=== PATIENT | male | born 1945 | race Caucasian/White ===

== ENCOUNTER 2020-08-05 10:34 | Outpatient (CLI) | payer MEDICARE, SELFPAY ==
[2020-08-05 11:19] LABS: C Reactive Protein 1.2 mg/L (0.0-4.9)
== END 2020-08-05 10:35 | disposition home or self-care (01) ==
LOC: LAB 10:36
PROVIDERS: PCP Family Medicine; Visit Provider Family Medicine
DX: R29.898 Other symptoms and signs involving the musculoskeletal system (principal)
CPT/HCPCS: 86140

== ENCOUNTER 2021-10-26 08:10 | Outpatient (CLI) | payer MEDICARE, OTHER, SELFPAY ==
[2021-10-26 08:39] VITALS: BMI 25.2
--- NOTE | 2021-10-26 08:40 | ECG_ITS ---
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 Interpretive Statements NAME OF STUDY: LEXISCAN SESTAMIBI STRESS TEST INDICATION: Chest Pain PROCEDURE: At the baseline, the blood pressure was 121/78 mmHg, oxygen saturation 91% with a heart rate of 76 bpm. The electrocardiogram showed normal sinus rhythm, normal axis with T wave inversion in 1 aVL V4 and V6. The Lexiscan was infused over a period of 20 seconds. A total of 0.4 milligrams of Lexiscan was infused. The stress phase was continued for a total of 5 minutes. Heart rate at the end of the stress phase was 89 bpm, oxygen saturation 93% with a blood pressure of 115/68 mmHg. The EKG at the peak infusion revealed 1.5 to [address] depression in leads II, 3, aVF, V4 to V6. T wave inversion noted in 1 aVL V3 to V6. Patient developed chest pressure at 1 minute 31 seconds 4/10 in intensity with radiation to throat that resolved by the time of discharge. Sestamibi was injected 20 seconds after the Lexiscan infusion. Blood pressure at the end of the recovery phase was 130/71 mmHg, oxygen saturation 95% with a heart rate of 83 beats per minute. Patient received aminophylline 25 mg IV x2 during recovery. CONCLUSION: 1. Positive EKG changes with the] LexiScan infusion with 1.5 to [address] depression in leads II, 3, aVF, V4 to V6 and T wave inversion noted in I, aVL, V3 to V6. 2. No LexiScan induced cardiac arrhythmia. Patient developed intraprocedural chest discomfort with radiation to throat that resolved by the time of discharge. 3. Normal blood pressure and heart rate response. 4. Sestamibi/sestamibi perfusion scan pending; see separate report. SEND RESULTS TO PAOLO MALIN Electronically Signed On 10-30-2021 13:19:19 MEDICAL DIRECTOR OCCUPATIONAL HEALTH by Sumi Calles M.D. [id number]
--- NOTE | 2021-10-26 08:40 | NMCV_ITS ---
NM kylie perf SPECT r/s* [id number] Efrem Patel Age: 76 Gender: M : 1945 Exam Date: 10/26/2021 09:29 Ordering Phys: Paolo Berumen MD Technologist: DREAD Matias Exam Location: [facility] Indications: CHEST PAIN STRESS TEST Please see separate stress [facility] for full findings IMAGE PROTOCOL Rest/Stress 1 Lexiscan Day Radiopharmaceutical Dose (mCi) Administration Site Administered by Rest: Tc-99m 10.7 IV DREAD Lopes Sestamibi Stress:Tc-99m 32.6 IV DREAD Lopes Sestamibi Rest: 26-Oct-2021 60 Discovery 630 Stress: 26-Oct-2021 30 Discovery 630 0.4mg Lexiscan. Images obtained in supine and prone position. SPECT RESULTS Technical Quality: Excellent Raw Data Analysis: Normal Image Corrections: No attenuation or motion correction applied Summed Stress Score: 14 Summed Rest Score: 5 Summed Difference Score: 9 PERFUSION FINDINGS Medium sized perfusion abnormality of moderate to severe severity of basal to mid inferior and basal to mid inferolateral madden with reversibility in basal to apical inferior and basal to apical inferolateral madden on stress images FUNCTIONAL RESULTS (calculated via Gated SPECT) Stress Image LV EF (%): 63 Stress EDV (mL):81 TID: 1.11 Stress ESV (mL):30 FUNCTIONAL FINDINGS: The left ventricle is normal in size. Transient Ischemia Dilatation of 1.1. The left ventricular ejection fraction is normal with a value of 63%. No regional wall motion normality. Normal end-diastolic end-systolic volumes. IMPRESSIONS 1. Moderate-sized partially reversible perfusion abnormality of moderate severity of basal to apical inferior and basal to apical inferolateral madden. 2. This is suggestive of old myocardial infarction with moderate eliezer-infarct ischemia in circumflex/right coronary artery territory. 3. Overall left ventricular systolic function is normal without regional wall motion abnormalities, LVEF=63%. 4. Positive EKG changes with symptoms of chest pain during Lexiscan infusion. Refer to separate report for details. The findings of the study were communicated to Dr. Berumen. Sumi Calles MD (Electronically Signed) Final Date: 30 October 2021 13:29 S
[2021-10-26] MEDS: regadenoson 0.4 Mg/5 ml Syringe IVP (10:24)
[2021-10-26] MEDS: aminophylline 25 mg/mL SDV 10 mL IVP ×2 (10:42→10:46)
[2021-10-26 10:53] VITALS: BP 130/71; PULSE 86
== END 2021-10-26 08:11 | disposition home or self-care (01) ==
PROVIDERS: PCP Family Medicine; Visit Provider Family Medicine
DX: R07.9 Chest pain, unspecified (principal)
CPT/HCPCS: 78452; 93017; A9500; J0280; J2785

== ENCOUNTER 2021-11-23 05:56 | Outpatient (CLI) | payer MEDICARE, OTHER, SELFPAY ==
[2021-11-20 09:19] LABS: Basophils % 0.9 %; Eosinophils # 0.1 10^3/uL (0.0-0.8); Eosinophils % 2.1 %; Hematocrit 47.2 % (42.0-52.0); Hemoglobin 15.7 g/dL (11.7-16.6); Lymphocytes # 1.9 10^3/uL (0.8-4.8); Lymphocytes % 40.3 %; Mean Corpuscular HGB Conc 33.3 g/dL (30.0-36.0); Mean Corpuscular Hemoglobin 30.3 pg (28.0-34.0); Mean Corpuscular Volume 91.1 fl (80-94); Mean Platelet Volume 9.3 fL (7.4-10.4); Monocytes # 0.4 10^3/uL (0.2-0.9); Neutrophils # 2.23 10^3/uL (1.8-7.7); Neutrophils % 47.7 %; Nucleated Red Blood Cells % 0 %; Platelet Count 251 10^3/cmm (130-400); Red Blood Count 5.18 10^6/uL (4.1-5.3); Red Cell Distribution Width 12.1 % (12.1-15.1); White Blood Count 4.7 10^3/uL (4.0-10.0)
[2021-11-20 09:29] LABS: INR 1.08 (0.83-1.21); Prothrombin Time (Patient) 14.3 Seconds (12.0-15.1)
[2021-11-20 09:35] LABS: Anion Gap 14.5 (5-19); Blood Urea Nitrogen 22 mg/dL (8-23); Calcium 9.1 mg/dL (8.5-10.5); Carbon Dioxide 24 mmol/L (22-29); Chloride 104 mmol/L (98-107); Glucose 122 mg/dL (65-115); Osmolality Calculated 291 mOsm/kg (285-295); Potassium 4.5 mmol/L (3.5-5.1); Sodium 138 mmol/L (136-145)
[2021-11-20 16:14] LABS: Adenovirus Not Detected (NOT DETECT); Chlamydia Pneumoniae Not Detected (NOT DETECT); Coronavirus 229E,HKU1,NL63,OC4 Not Detected (NOT DETECT); Human Metapneumovirus Not Detected (NOT DETECT); Human Rhinovirus/Enterovirus Not Detected (NOT DETECT); Influenza A Not Detected (NOT DETECT); Influenza A H1 Not Detected (NOT DETECT); Influenza A H1-2009 Not Detected (NOT DETECT); Influenza A H3 Not Detected (NOT DETECT); Influenza B Not Detected (NOT DETECT); Mycoplasma Pneumoniae Not Detected (NOT DETECT); Parainfluenza Virus Type 1 Not Detected (NOT DETECT); Parainfluenza Virus Type 2 Not Detected (NOT DETECT); Parainfluenza Virus Type 3 Not Detected (NOT DETECT); Parainfluenza Virus Type 4 Not Detected (NOT DETECT); Respiratory Syncytial Virus A Not Detected (NOT DETECT); Respiratory Syncytial Virus B Not Detected (NOT DETECT); SARS-COV-2 Not Detected (NOT DETECT)
[2021-11-23] VITALS (18 sets, daily range): BP systolic 86–127; BP diastolic 56–84; PULSE 65–94; RESP 16–22; TEMP 36.2; O2SAT 90–96; BMI 26.3
--- NOTE | 2021-11-23 06:00 | XACV_ITS ---
Ht: 173 cm Wt: 78 kg BSA: 1.95 m2 Gender: Male : 1945 Any Known Allergies: Other Exam Priority: Routine Indication(s): - Abnormal nuclear perfusion study - Chest pain Procedure(s): Procedure Description: Diagnostic procedure Procedure Description: Coronary Angiography Procedure Description: Pressure Wire Diagnostic Cath Status: Elective Diagnostic Findings * Left Anterior Descending has no significant disease. * Left Main: mild 30% stenosis, ADITYA: 3 flow. * Proximal Right Coronary Artery: total occlusion, ADITYA: 0 flow. Collaterals noted from left system. * Ostial left Circumflex: obstructive 70-80% stenosis, ADITYA: 3 flow.It is calcified vessel. * INDICATION: Worsening angina/ dyspnea on exertion/ abnormal stress test. * Coronary angiography shows right dominance. Interventional Findings * Procedure detail: Left main artery was engaged with XB 3.5 guide catheter. After normalization IFR wire was introduced into the left circumflex artery. An IFR value of 0.71 was obtained which was ischemic. iFR pullback showed pressure drop was at ostial left circumflex artery. Guidewire was removed and final angiogram was performed. No complications were noted. Patient left the Air And Water Filler in a stable condition. Conclusions 1. Severe 2 vessel coronary artery disease including ostial Left circumflex( calcified vessel) and BOLT THREADER of RCA. Recommendations * We will refer to CT surgery for opinion regarding 2 vessel CABG. Given RCA BOLT THREADER and ostial LCx disease that is calcified, percutaneous revascularization will be high risk and may not provide complete revascularization. Alternate option will be medical therapy. We will discuss with patient after heart team discussion. * Aggressive medical therapy. * Uptitrate long acting nitrates as tolerated. * Outpatient cardiology follow up in 3-4 weeks. Interventional RX Recommendation: medical therapy and/or counseling Diagnostic RX Recommendation: medical therapy and/or counseling Anticoagulation: Heparin Clinical Evaluation EBL: 5mL-10mL Procedural Details Procedure Consent Obtained. Admit Source: Out Patient. Current Diagnosis : Chest Pain. Pre-Procedure Time Out. Identified patient by full name and date of as verbalized by the patient/guarantor. Does the consent match the physician's order: Yes. Accurate & Complete Informed Consent: Yes. Inpatient/Outpatient History & Physical on Chart: Yes. If H&P is completed, is and addenduem needed: No; If yes, is the addendum complete: N/A. Visualize and Verify Site with Patient/Guarantor: N/A. Relevant Radiology Images available: N/A. The risks, benefits, and alternatives of sedation and/or procedure were discussed by physician. The patient agrees to continue. Equipment: 5F - Radial. Equipment: 6F - Radial. Equipment: 5F - Femoral. Equipment: 6F - Femoral. Cardiac Cath Pack. ACIST Manifold Kit Model BT 2000. Heparinized Saline (2 units/mL), 1000 mL bag. [facility] Clinical Fraility Score: 3: Managing Well. Air And Water Filler Indications: Worsening Angina, Abnormal stress test. Chest Pain Symptom Assessment: Typical Angina Symptoms. Procedure started. Cardiovascular Instability: No, stable. Correct patient, site and procedure confirmed by cath team. Current diagnosis: Worsening Angina, Abnormal stress test. PERRLA. Strong, equal hand substance abuse services director bilaterally. Lungs clear x 5 lobes. IV Site on Arrival: 20 gauge in the right anticubital. IV Fluids: 0.9% NaCl at KVO. 0 mL infused prior to laboratory administrative director. Pre Procedural Pulses: bilateral posterior tibial was Doppled. Pre Procedural Pulses: bilateral dorsalis pedis was 2+. Pre Procedural Pulses: bilateral radial was 2+. Oxygen started at 3liters/min via nasal canula. right groin was prepped with chloroprep then draped in the usual sterile fashion. left radial was prepped with chloroprep then draped in the usual sterile fashion. Physician notified. Baseline sample Acquired. HR: 73 BPM. MD updated family prior to the start of the procedure. Physician arrived. Physician scrubbed in. Immediate Pre-Procedure Time Out. Correct Patient: Yes; Correct Procedure: Yes; Correct Site: Yes; Correct Patient Position: Yes; Correct Supplies: Yes; Dried Flammable Prep: Yes; Blood Products Available: N/A;. Lidocaine 1% infiltrated to the left radial. Arterial access obtained. A 5 botswanan TIG catheter in over wire. Catheter redirected to the RCA. Multiple views taken of right coronary artery. Catheter removed over the standard wire. A 5 botswanan JL4 catheter in over wire. Catheter removed over the standard wire. A 5 botswanan JL3.5 catheter in over wire. Multiple views taken of left coronary artery. Catheter removed over the standard wire. 6 botswanan XB 3 guide catheter was inserted over the wire. standard wire removed. OmniWire pressure guide wire inserted through guide catheter. Omniwire seated into distal Circumflex. IFR spot ostial circumflex 0.71. IFR pullback of ostial circumflex 0.73. Angiography performed. IFR wire out. Guide catheter out over wire. Physician scrubbed out. A TR Band was successful obtaining hemostatsis at the Left Radial artery insertion site. Post Procedure: Pulses reassessed and unchanged. PERRLA. Strong, equal hand substance abuse services director bilaterally. No VTE prophylaxis required. Medication's Wasted: Lidocaine 1% = 18 mL. Medication's Wasted: Nitro = 49.8 mg. Total IV fluids: 103 mL. Post-op diagnosis: Severe multivessel CAD. Complications: None. Estimated blood loss: 5mL-10mL. Responsiveness - Normal response to verbal stimuli; alert and oriented, PERRLA. Airway - Unaffected, no intervention required; spontaneous ventilation. Circulation: W/N/L, pulses unchanged. Nausea/Vomiting: No. Procedure completed. Patient transferred by wheelchair to CPRU. Access Site Site: Left Radial artery Sheath Size: 6 Fr Hemostasis Method: TR Band Hemostasis Success: Successful Procedure Medications Start: 7:27 AM Stop: 7:27 AM Medication: Versed 1 mg and Fentanyl 25 mcg Amount: 1 Route: I.V. Start: 7:37 AM Stop: 7:37 AM Medication: Versed Amount: 0.5 mg Route: I.V. Start: 7:38 AM Stop: 7:38 AM Medication: Versed Amount: 0.5 mg Route: I.V. Start: 7:41 AM Stop: 7:41 AM Medication: Fentanyl Amount: 25 mcg Route: I.V. Start: 7:41 AM Stop: 7:41 AM Medication: Nitrogylcerin Amount: 200 mcg Route: I.A. Start: 7:48 AM Stop: 7:48 AM Medication: Versed Amount: 1 mg Route: I.V. Start: 7:52 AM Stop: 7:52 AM Medication: Fentanyl Amount: 25 mcg Route: I.V. Start: 7:53 AM Stop: 7:53 AM Medication: Heparin Amount: 5000 units Route: I.V. Start: 7:59 AM Stop: 7:59 AM Medication: Heparin Amount: 1000 units Route: I.V. Start: 8:02 AM Stop: 8:02 AM Medication: Versed Amount: 1 mg Route: I.V. I, the attending physician, have reviewed and verified all procedure medications. Yes, all medications given per verbal order History/Risk Factors Hypertension: No Dyslipidemia: Yes Peripheral Arterial Disease (PAD): No Myocardial Infarction (FL): No Obesity: No Renal Disease: No Tobacco Use: Former Prior Interventions PCI: No CABG: No Valve Surgery: No Report Signatures Finalized by Yomi Triplett MD on 12/05/2021 03:16 PM
[2021-11-23] MEDS: diphenhydrAMINE 50 mg Capsule PO (06:50)
--- NOTE | 2021-11-23 07:28 | W.PM.OPSUD ---
Surgery/Procedure H&P Update DATE OF PROCEDURE: November 23, 2021 DATE H&P PERFORMED: 11/17/21 H&P UPDATE INFORMATION: I have reviewed H&P completed within last 30 days, I have examined patient prior to procedure and No changes to prior documentation PREOP DIAGNOSIS: Worsening angina/abnormal stress test PRIMARY INDICATION FOR PROCEDURE: Worsening angina/abnormal stress test PLANNED PROCEDURE: Operation Date: 11/23/21 08:30 Proposed Procedures p Cardiac Catheterization(Left) - Yomi Triplett M.D Possible percutaneous coronary intervention PATIENT REASSESSED PRIOR TO SEDATION, WITH NO CHANGE NOTED: Yes PHYSICAL EXAM: alert, oriented x 3, clear to auscultation bilaterally and regular rate & rhythm AIRWAY EVAL/ANESTHESIA PLAN: ASA III, Monitored Anesthesia, Local Anesthesia, Risks, benefits & alternatives of sedation and/or procedure discussed and Patient agrees to continue as planned ADDITIONAL INFORMATION: Left heart cath with possible percutaneous coronary intervention
--- NOTE | 2021-11-23 08:27 | PC.NURSE ---
received pt from cardiac cath rn. pt drowsy but able to be aroused. pt complains of no pain. tr band on left wrist with distal pulse palpable. pt educated on restrictions of left wrist. nurse to educate throughout recovery as well. pt on monitor and will be monitored per protocol.
== END 2021-11-23 12:49 | disposition home or self-care (01) ==
PROVIDERS: Internal Medicine Cardiovascular Disease; PCP Family Medicine; Visit Provider Internal Medicine
DX: I25.10 Atherosclerotic heart disease of native coronary artery without angina pectoris (principal); E78.5 Hyperlipidemia, unspecified; Z87.891 Personal history of nicotine dependence; Z79.82 Long term (current) use of aspirin; M79.7 Fibromyalgia
CPT/HCPCS: 36415; 80048; 85025; 85610; 87635; 93454; 93571; C1769; C1887; C1894; J1644; J2250; J3010; J3490; J7030; Q0163; Q9967

== ENCOUNTER → 2021-12-08 09:26 | Outpatient (BNVA) | payer MEDICARE, OTHER, SELFPAY | PROVIDERS: PCP Family Medicine; Visit Provider Thoracic Surgery (Cardiothoracic Vascular Surgery) | DX: I25.10 Atherosclerotic heart disease of native coronary artery without angina pectoris (principal); Z79.82 Long term (current) use of aspirin; Z98.61 Coronary angioplasty status; Z87.891 Personal history of nicotine dependence | CPT/HCPCS: 99205 ==

== ENCOUNTER 2021-12-20 07:29 | Outpatient (CLI) | payer MEDICARE, OTHER, SELFPAY ==
--- NOTE | 2021-12-20 11:45 | USCV_ITS ---
RavenEfrem booth Age: 76 Gender: M : 1945 Exam Date: 12/20/2021 09:04 Ordering Phys: Michele Payton MD (Andy) Technologist: PAULINA [place] [facility] [place]ication: BLE MAPPING FOR HARVEST RIGHT LEFT LOWER EXTREMITY Diameter Diameter (cm) (cm) 0.27 High Thigh 0.32 0.18 Mid Thigh 0.19 0.22 Above Knee 0.26 0.20 Below Knee 0.20 0.21 Mid Calf 0.18 0.23 Ankle 0.27 RIGHT LEFT UPPER EXTREMITY The Upper Extremity section is not evaluated at this time Findings Right greater saphenous vein mapped and measured as above. Left greater saphenous vein mapped and measured as above. Veins were found to be easily compressible Conclusions Relatively small caliber and patent veins bilaterally measuring anywhere from 0.18-0.27 on the right side and 0.18-0.32 on the left side. Dr Catrachito Tellez MD [facility] (Electronically Signed) Final Date: 22 December 2021 10:20 S
== END 2021-12-20 07:30 | disposition home or self-care (01) ==
LOC: RAD 07:29
PROVIDERS: PCP Family Medicine; Visit Provider Thoracic Surgery (Cardiothoracic Vascular Surgery)
DX: R07.9 Chest pain, unspecified (principal)
CPT/HCPCS: 93970

== ENCOUNTER → 2021-12-20 08:12 | Day surgery (SDC) | payer MEDICARE, OTHER, SELFPAY | PROVIDERS: PCP Family Medicine; Visit Provider Thoracic Surgery (Cardiothoracic Vascular Surgery) | DX: Z01.818 Encounter for other preprocedural examination (principal) | CPT/HCPCS: 80048; 80076; 81003; 84439; 84443; 85025; 85610; 85730; 86850; 86900; 86920; 87635; 93005 ==

== ENCOUNTER → 2021-12-27 11:20 | Outpatient (BNVA) | payer MEDICARE, OTHER, SELFPAY | PROVIDERS: PCP Family Medicine; Visit Provider Thoracic Surgery (Cardiothoracic Vascular Surgery) | DX: Z20.822 Contact with and (suspected) exposure to COVID-19 (principal) | CPT/HCPCS: 99999 ==

== ENCOUNTER 2022-01-01 05:19 | Inpatient (IN) | payer MEDICARE, SELFPAY ==
[2021-12-20 07:49] VITALS: BMI 25.2
--- NOTE | 2021-12-20 08:12 | ECG_ITS ---
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 Measurements Intervals Alder Rate: 64 P: 37 ID: 149 QRS: 33 QRSD: 102 T: 136 QT: 384 QTc: 398 Interpretive Statements SINUS RHYTHM ST DEVIATION AND MODERATE T-WAVE ABNORMALITY, CONSIDER ANTEROLATERAL ISCHEMIA [-0.1+ mV T-WAVE IN V3-V6] No previous ECG available for comparison Electronically Signed On 12-20-2021 18:53:55 CDT by Yomi Triplett M.D. [id number]
[2021-12-20 08:36] LABS: Basophils % 0.3 %; Eosinophils % 0.2 %; Hemoglobin 16.2 g/dL (11.7-16.6); Lymphocytes # 1.6 10^3/uL (0.8-4.8); Lymphocytes % 26.9 %; Mean Corpuscular HGB Conc 33.8 g/dL (30.0-36.0); Mean Corpuscular Hemoglobin 30.6 pg (28.0-34.0); Mean Corpuscular Volume 90.6 fl (80-94); Mean Platelet Volume 9.5 fL (7.4-10.4); Monocytes # 0.4 10^3/uL (0.2-0.9); Neutrophils # 3.84 10^3/uL (1.8-7.7); Neutrophils % 66.3 %; Nucleated Red Blood Cells % 0 %; Platelet Count 265 10^3/cmm (130-400); Red Cell Distribution Width 11.9 % (12.1-15.1); White Blood Count 5.8 10^3/uL (4.0-10.0)
--- NOTE | 2021-12-20 08:47 | ANES.PREANE2 ---
Pre-Anesthetic Assessment Height/Weight: Height 1.73 m Weight 75.296 kg Preop Diagnosis: Severe two-vessel coronary artery disease Operation Date: 12/26/21 07:00 Proposed Procedures p CABG(Not Applicable) - Michele Payton MD Familial anesthetic complications: None Social No alcohol and No tobacco Exam alert, oriented x 3, clear to auscultation bilaterally and regular rate & rhythm Airway Mallampati: Class IV Dentition: false Pulmonary Sleep Apnea CV/HEM Coronary Artery Disease and Myocardial Infarction None reported Hepatic None reported GI None reported Metabolic None reported Musc/skel None reported Neuropsych None reported Anesthetic Plan ASA status: 4 Anesthesia: General Medications/Allergies Home Medications Medication Instructions Recorded Confirmed Last Taken Type aspirin 81 mg tablet,delayed 81 mg PO DAILY 04/01/20 12/20/21 11/23/21 04:30 History release (Aspir-) metoprolol tartrate 25 mg tablet 12.5 mg PO BID 04/01/20 12/20/21 11/23/21 04:30 History nitroglycerin 0.4 mg sublingual 0.4 mg SUBLINGUAL Q5M PRN 04/01/20 12/20/21 Unknown History tablet (Nitrostat) acetaminophen 650 mg 650 mg PO Q12H 10/21/20 12/20/21 Unknown History tablet,extended release (Tylenol Arthritis Pain) evolocumab 420 mg/3.5 mL 420 mg SUBCUT DIRECTED 04/28/21 12/20/21 11/21/21 History subcutaneous wearable injector (Repatha Pushtronex) gemfibrozil 600 mg tablet 600 mg PO BID #180 tab 05/31/21 12/20/21 11/23/21 04:30 Rx CO Q 10 100 mg PO BID 10/31/21 12/20/21 11/22/21 06:00 History arginine (L-arginine) 500 mg 500 mg PO DAILY 12/08/21 12/20/21 Unknown History capsule isosorbide mononitrate 30 mg 30 mg PO DAILY tab 12/08/21 12/20/21 Unknown History tablet,extended release 24 hr vitamins A,C,B-bfzf-simaiu 14,320 1 cap PO DAILY cap 12/08/21 12/20/21 Unknown History unit-226 mg-200 unit capsule (PreserVision AREDS) Allergies Allergy/AdvReac Type Severity Reaction Status Date / Time Urgbyll-PLL-NcM Reductase Allergy Severe Can't get Verified 12/08/21 10:21 Inhibitor out of bed rosuvastatin Allergy Unknown Unknown Verified 12/08/21 10:21 [facility] Anesthesia Medical History ASHD (arteriosclerotic heart disease) Dyslipidemia Fibromyalgia Statin intolerance Surgical History H/O knee surgery S/P PTCA (percutaneous transluminal coronary angioplasty) Family History Other CAD (coronary artery disease) Cancer Social History Smoking and tobacco status: former smoker Quit status (tobacco): has quit using tobacco Year quit tobacco: 1961 Former quit date comment: Smoked 1/2 pack x 6 months Alcohol intake: never Household members: spouse Marital status: service: No Data Anesthesia : 12/20/21 08:10 12/20/21 08:10 Short CBC 12/20/21 Range/Units 08:10 WBC 5.8 (4.0-10.0) 10^3/uL Hgb 16.2 (11.7-16.6) g/dL Hct 48.0 (42.0-52.0) % MCV 90.6 (80-94) fl Plt Count 265 (130-400) 10^3/cmm Neut % (Auto) 66.3 % Neut # (Auto) 3.84 (1.8-7.7) 10^3/uL Cardiac Studies: Sestamibi Stress Test (Cardiology) 10/26/21
[2021-12-20 08:55] LABS: INR 1.02 (0.8-1.2)
[2021-12-20 08:56] LABS: Partial Thromboplastin Time 38.2 SECONDS (23.9-36.7)
[2021-12-20 09:10] LABS: Alanine Aminotransferase 10 U/L (0-41); Albumin Level 4.7 g/dL (3.5-5.2); Alkaline Phosphatase 84 IU/L (40-130); Aspartate Amino Transferase 18 U/L (0-40); Blood Urea Nitrogen 16 mg/dL (8-23); Calcium 9.9 mg/dL (8.5-10.5); Carbon Dioxide 25 mmol/L (22-29); Chloride 105 mmol/L (98-107); Globulin 3.8 g/dL (1.3-4.6); Glucose 154 mg/dL (65-115); Osmolality Calculated 298 mOsm/kg (285-295); Sodium 142 mmol/L (136-145); Thyroid Stimulating Hormone 1.33 uIU/mL (0.27-4.20); Total Bilirubin 0.3 mg/dL (0.15-1.2); Total Protein 8.5 g/dL (6.6-8.7)
[2021-12-20 09:50] LABS: Free T4 Free Thyroxine 1.08 ng/dL (0.82-1.77)
[2021-12-20 10:21] LABS: Charge for UA Resulting for Rev
[2021-12-20 10:59] LABS: Add Urine Microscopic? YES; Bilirubin Urine Neg (Negative); Blood Urine Neg (Negative); Glucose Urine UA Norm (Normal); Ketones Urine Negative (Negative); Leukocyte Esterase Urine Negative (Negative); Nitrate Urine Negative (Negative); Protein Urine Neg (Negative); Urine Appearance Clear (CLEAR); Urine Color Yellow (Yellow); Urobilinogen Urine Norm (Negative); pH Urine 6 (5-7)
[2021-12-20 12:27] LABS: Adenovirus Not Detected (NOT DETECT); Chlamydia Pneumoniae Not Detected (NOT DETECT); Coronavirus 229E,HKU1,NL63,OC4 Detected (NOT DETECT); Human Metapneumovirus Not Detected (NOT DETECT); Human Rhinovirus/Enterovirus Not Detected (NOT DETECT); Influenza A Not Detected (NOT DETECT); Influenza A H1 Not Detected (NOT DETECT); Influenza A H1-2009 Not Detected (NOT DETECT); Influenza A H3 Not Detected (NOT DETECT); Influenza B Not Detected (NOT DETECT); Mycoplasma Pneumoniae Not Detected (NOT DETECT); Parainfluenza Virus Type 1 Not Detected (NOT DETECT); Parainfluenza Virus Type 2 Not Detected (NOT DETECT); Parainfluenza Virus Type 3 Not Detected (NOT DETECT); Parainfluenza Virus Type 4 Not Detected (NOT DETECT); Respiratory Syncytial Virus A Not Detected (NOT DETECT); Respiratory Syncytial Virus B Not Detected (NOT DETECT); SARS-COV-2 Not Detected (NOT DETECT)
[2021-12-27 13:23] LABS: Adenovirus Not Detected (NOT DETECT); Chlamydia Pneumoniae Not Detected (NOT DETECT); Coronavirus 229E,HKU1,NL63,OC4 Detected (NOT DETECT); Human Metapneumovirus Not Detected (NOT DETECT); Human Rhinovirus/Enterovirus Not Detected (NOT DETECT); Influenza A Not Detected (NOT DETECT); Influenza A H1 Not Detected (NOT DETECT); Influenza A H1-2009 Not Detected (NOT DETECT); Influenza A H3 Not Detected (NOT DETECT); Influenza B Not Detected (NOT DETECT); Mycoplasma Pneumoniae Not Detected (NOT DETECT); Parainfluenza Virus Type 1 Not Detected (NOT DETECT); Parainfluenza Virus Type 2 Not Detected (NOT DETECT); Parainfluenza Virus Type 3 Not Detected (NOT DETECT); Parainfluenza Virus Type 4 Not Detected (NOT DETECT); Respiratory Syncytial Virus A Not Detected (NOT DETECT); Respiratory Syncytial Virus B Not Detected (NOT DETECT); SARS-COV-2 Not Detected (NOT DETECT)
[2021-12-29 10:26] LABS: Basophils % 0.7 %; Eosinophils # 0.1 10^3/uL (0.0-0.8); Eosinophils % 1.7 %; Hematocrit 47.6 % (42.0-52.0); Hemoglobin 16.3 g/dL (11.7-16.6); Lymphocytes # 2.1 10^3/uL (0.8-4.8); Lymphocytes % 35.8 %; Mean Corpuscular HGB Conc 34.2 g/dL (30.0-36.0); Mean Corpuscular Hemoglobin 30.6 pg (28.0-34.0); Mean Corpuscular Volume 89.3 fl (80-94); Mean Platelet Volume 9.7 fL (7.4-10.4); Monocytes # 0.6 10^3/uL (0.2-0.9); Monocytes % 9.7 %; Neutrophils # 3.06 10^3/uL (1.8-7.7); Neutrophils % 51.9 %; Nucleated Red Blood Cells % 0 %; Platelet Count 266 10^3/cmm (130-400); Red Blood Count 5.33 10^6/uL (4.1-5.3); Red Cell Distribution Width 11.9 % (12.1-15.1); White Blood Count 5.9 10^3/uL (4.0-10.0)
[2021-12-29 10:37] LABS: INR 1.01 (0.8-1.2)
[2021-12-29 10:38] LABS: Partial Thromboplastin Time 39.4 SECONDS (23.9-36.7)
[2022-01-01] VITALS (45 sets, daily range): BP systolic 93–145; BP diastolic 45–73; PULSE 71–115; RESP 12–25; TEMP 36.6–38.8; O2SAT 92–99
[2022-01-01 05:19] LABS: Glucose Point of Care 132 mg/dL (70-110)
[2022-01-01] MEDS: sodium chloride 0.9% 1,000 ML 30 ML IV (05:23)
--- NOTE | 2022-01-01 05:53 | P.ANESUD_ITS ---
Pre-Anesthetic Update Pre-Anesthetic Assessment: Date of Surgery/Procedure: 01/01/22 Preop Poppy gnosis: Coronary artery disease Proposed Procedure: Operation Date: 12/27/21 07:00 Proposed Procedures p CABG(Not Applicable) - Michele Payton MD Operation Date: 01/01/22 08:00 Proposed Procedures p CABG(Not Applicable) - Michele Payton MD Any changes to Pre-Anesthetic Assessment?: No Last Intake: Intake Last Liquid Date 12/31/21 Last Liquid Time 21:00 Last Solid Date 12/31/21 Last Solid Time 13:00 Labs Last 48hrs: Blood Bank 12/29/21 10:14 Blood Type A Positive Rho(D) Type Positive Antibody Screen Negative Vitals: Temperature 97.8 F 01/01/22 04:57 Temperature Source Temporal Artery S can 01/01/22 04:57 Pulse Rate 71 01/01/22 04:57 Respiratory Rate 16 01/01/22 04:57 Blood Pressure 129/72 01/01/22 04:57 Blood Pressure Lanie n 91 01/01/22 04:57 Pulse Oximetry 94 01/01/22 04:57 Oxygen Delivery Me thod 01/01/22 04:57 Exam: Pre-Anes Outpt Exam: alert, oriented x 3, clear to auscultation bilaterally and regular rate & rhythm Cardiac Studies: Sestamibi Stress Test (Cardiology) 10/26/21
--- NOTE | 2022-01-01 06:12 | P.HPUD_ITS ---
Surgery/Procedure H&P Update DATE OF PROCEDURE: January 01, 2022 DATE H&P PERFORMED: 12/08/21 H&P UPDATE INFORMATION: I have reviewed H&P completed within last 30 days, I have examined patient prior to procedure and No changes to prior documentation CHANGES TO PREVIOUS DOCUMENTATION: I again carefully reviewed with Mr. Patel and his family recommendations for coronary artery bypass grafting. All questions were answered. They wish to pr oceed. Surgery was delayed from last week due to my illness. PREOP DIAGNOSIS: Coronary artery disease PRIMARY INDICATION FOR PROCEDURE: Severe two-vessel coronary artery disease with exertional symptoms PLANNED PROCEDURE: Operation Date: 12/27/21 07:00 Proposed Procedures p CABG(Not Applicable) - Michele Payton MD Operation Date: 01/01/22 08:00 Proposed Procedures p CABG(Not Applicable) - Michele Payton MD
[2022-01-01] MEDS: cefUROXime 1,500 MG in sodium chloride 0.9% (plus) 50 ML 100 MG IV ×2 (07:00→13:00)
--- NOTE | 2022-01-01 07:56 | SUR.OPER ---
Family Notified Of Patient's Status Via Phone.
[2022-01-01] MEDS: vancomycin 1,000 MG SDV 1000 MG IRRIGATION (08:48)
--- NOTE | 2022-01-01 08:56 | SUR.OPER ---
[id number] Family Notified Of Patient's Status Via Phone.
--- NOTE | 2022-01-01 09:00 | SUR.OPER ---
0900 vein solution on sterile field , used by Dr. Payton and Aurelio Wade, Vein harvester LR 1000ml mixed w/ 1750 units of heparin, 0.7 MEQ Sodium Bicarbonate, Verapamil 17.5mg, and 10mg Nitroglycerin
--- NOTE | 2022-01-01 09:56 | SUR.OPER ---
[id number] Family Notified Of Patient's Status Via Phone.
--- NOTE | 2022-01-01 10:25 | SUR.OPER ---
Addendum entered and electronically signed by Jett Brown RN 01/01/22 10:45: 1025 on pump started and ICU contacted of status Original Note: 1025 on pump started
--- NOTE | 2022-01-01 11:33 | SUR.OPER ---
1115 Family Notified Of Patient's Status Via Phone.
--- NOTE | 2022-01-01 12:15 | SUR.OPER ---
1215 Family Notified Of Patient's Status Via Phone.
--- NOTE | 2022-01-01 12:40 | SUR.OPER ---
1240 off pump / icu notified
--- NOTE | 2022-01-01 13:22 | SUR.OPER ---
1318 Family Notified Of Patient's Status Via Phone.
--- NOTE | 2022-01-01 15:05 | PC.NURSE ---
Pt arrived to ICU from surgery. Pt intubated and sedated. Cordis/Swanz, right CVL, right art line patent. Wound vac patent with compressed sponge. Pacemaker connected but off. Dobutamine, Alessandro-synephrine and Propofol infusing. Bilat legs ashley wraps , clean, dry and intact noted. Chest tubes patnet and draining. Sinus rhythm with no ectopy noted.
--- NOTE | 2022-01-01 15:10 | XR_ITS ---
WS: [id number] Exam: XR chest 1V portable [id number] Date/Time of Exam: 01/01/2022 2:41 PM Reason For Exam: instrument counts for cabg and central line placements Comparison 03/01/2011. Left lower lobe atelectasis and/or infiltrate. The lungs are fully expanded and otherwise clear. ET t ube ends about 7 cm above the karmen in good position. A right IJ catheter extends into the right hea rt. An enteric tube appears to end in the fundus of the stomach. Median sternotomy wires. Cardiomedia stinal silhouette unremarkable for technique. There does appear to be some mild pulmonary vascular co ngestion. XR/XR chest 1V portable [id number] IMPRESSION: 1. Left lower lobe atelectasis and/or infiltrate. There may be left basal pleur al effusion. 2. Mild pulmonary vascular congestion. 3. ET tube and enteric tube both in good position. 4. Right IJ catheter extending into the right heart.
--- NOTE | 2022-01-01 15:10 | PC.NURSE ---
Terence Castro at 53.
--- NOTE | 2022-01-01 15:30 | PC.NURSE ---
CBC and BMP labs check. No electrolyte replacement or blood transfusion indicated.
[2022-01-01 15:36] LABS: ABG PCO2 40.1 mmHg (35-45); ABG PH Result 7.41 (7.35-7.45); Arterial Blood Gas Hematocrit 44.6 % (42-52); Base Excess ABG 0.6 mmol/L (-2.0-2.0); Blood Gas Operator Identificat CAK; Blood Gas Sample Site ARTLINE; Blood Gas Sample Type Arterial; Blood Gas Tidal Volume 0.55; HCO3 ABG 25.3 mmol/L (22-26); Oxygen Device VENT
--- NOTE | 2022-01-01 15:37 | ECG_ITS ---
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 Measurements Intervals Wilmer Rate: 97 P: 46 NJ: 125 QRS: 61 QRSD: 111 T: 79 QT: 354 QTc: 450 Interpretive Statements SINUS RHYTHM POSSIBLE RIGHT VENTRICULAR CONDUCTION DELAY [RSR (QR) IN V1/V2] MODERATE T-WAVE ABNORMALITY, CONSIDER ANTEROLATERAL ISCHEMIA [-0.1+ mV T-WAVE IN V3-V6] Compared to ECG 12/20/2021 08:29:51 No significant changes Electronically Signed On 01-01-2022 22:04:42 CDT by Yomi Triplett M.D. [id number]
[2022-01-01 15:41] LABS: Basophils # 0.1 10^3/uL (0.0-0.1); Basophils % 0.4 %; Eosinophils % 0.1 %; Hematocrit 40.9 % (42.0-52.0); Hemoglobin 14.1 g/dL (11.7-16.6); Lymphocytes # 2.9 10^3/uL (0.8-4.8); Lymphocytes % 9.7 %; Mean Corpuscular HGB Conc 34.5 g/dL (30.0-36.0); Mean Corpuscular Hemoglobin 30.9 pg (28.0-34.0); Mean Corpuscular Volume 89.7 fl (80-94); Mean Platelet Volume 9.6 fL (7.4-10.4); Monocytes % 6.7 %; Neutrophils # 24.38 10^3/uL (1.8-7.7); Neutrophils % 81.7 %; Nucleated Red Blood Cells % 0 %; Platelet Count 176 10^3/cmm (130-400); Red Blood Count 4.56 10^6/uL (4.1-5.3); Red Cell Distribution Width 11.9 % (12.1-15.1); White Blood Count 29.8 10^3/uL (4.0-10.0)
[2022-01-01 15:55] LABS: INR 1.45 (0.8-1.2)
[2022-01-01] MEDS: albumin 12.5 GM/250 ML VIAL IV ×3 (15:55→22:07)
[2022-01-01] MEDS: phenylephrine inj 25 MG in sodium chloride 0.9% 250 ML 48.48 MG IV (15:55)
[2022-01-01 15:56] LABS: Partial Thromboplastin Time 34.7 SECONDS (23.9-36.7)
[2022-01-01 16:05] LABS: Anion Gap 16.2 (5-19); Blood Urea Nitrogen 15 mg/dL (8-23); Calcium 9.5 mg/dL (8.5-10.5); Carbon Dioxide 24 mmol/L (22-29); Chloride 108 mmol/L (98-107); Glucose 121 mg/dL (65-115); Magnesium 2.3 mg/dL (1.7-2.3); Osmolality Calculated 300 mOsm/kg (285-295); Potassium 4.2 mmol/L (3.5-5.1); Sodium 144 mmol/L (136-145)
--- NOTE | 2022-01-01 16:06 | P.OP_ITS ---
Operative Report Date of procedure: January 01, 2022 Pre-op diagnosis: Preop Diagnosis Coronary artery disease Post-op diagnosis: same Procedure done: See1. Coronary artery bypass grafting x2 1 artery and 1 vein) utilizing in situ left internal mammary artery to the obtuse marginal branch of circumflex artery and reverse saphenous vein graft from the aorta to the posterior descending artery. Pathology: none sent Surgeon: Michele Payton Estimated blood loss (mL): 750 Estimated blood loss: Cell salvage blood was processed and returned. Complications: None Condition: stable Brief History: Mr. Patel is a 76-year-old gentleman with known coronary artery disease inclu ding an occluded RCA with collateralization and a high-grade calcified lesion in the proximal circumflex artery. He has had progressive exertional dyspnea and chest discomfort. He was carefully evaluated following catheterization by Dr. Triplett. Due to the calcification of his proximal circumflex lesion as well as his occluded RCA, he was referred to consider surgical revascularization. He underwent outpatient careful preoperative evaluation. Details of risk of surgery were carefully and frankly discussed. Proper consents have been reviewed and signed. Procedure: Details and risks of the surgery were carefully and frankly explained to the patient and the family. Particular risks of this surgery carefully reviewed with them included the possibility of , stroke, heart attack, major bleeding, infection, pneumonia, pain, organ failure, failure to benefit, early closure of the bypass grafts, prolonged hospital stay and subsequent need for further procedures. Mr. Patel and family understand these increased risks. All questions were answered and appropriate consents were reviewed and signed. Preoperative education for the patient and the family included both written and video materials. The patient and the family wished to proceed with plans for attempted surgical revascularization for severe coronary artery bypass. PROCEDURE: Preoperative evaluation was obtained from our Anesthesia colleagues and adequate IVs were confirmed. The patient was then taken to the Operating Room Suite where general anesthesia was induced. Appropriate invasive monitoring lines were placed, including large bore peripheral IVs, central line, Bradford-Matthew catheter, Cuevas catheter and associated monitoring leads. After careful positioning on the Operating Room table, the patient was subsequently sterilely prepped and draped. Greater saphenous vein was harvested by endoscopic technique from the left and right thighs. Branches were secured with ligature and clips and the vein was extracted from the tunnel without tension. It was then flushed with a Heparin and albumin solution and prepared for grafting. Vein harvest sites were irrigated, platelet poor plasma infused into the tunnel and port sites closed with 3-0 and 4-0 Vicryl Plus suture. Simultaneously with vein harvesting, a median sternotomy was created utilizing a #10 scalpel blade with hemostasis controlled with cautery. After reaching the sternal table, the sternum was divided with a reciprocating saw. Bleeding was controlled with cautery and judicious use of bone wax. Following this, the left chest wall was elevated with a Rultract retractor. The left internal mammary artery was dissected free with branches being secured with clips and cautery. The distal end was left intact. After harvesting of the mammary artery, a left pleural chest tube was then placed. The left chest wall was then lowered and moistened antibiotic-soaked laparotomy pads were placed in the wound, followed by an Ankeney retractor. The sternum was then and the pericardium opened and secured with stay sutures. After inspection, 2-0 pledgeted Ethibond sutures were placed at cannulation sites, at which time the patient was fully heparinized. Following this, the left internal mammary artery was taken down from its distal attachment, flushed with Papaverine solution, prepared for grafting and brisk flow confirmed. A soft bulldog was applied distally. Next, the heart was cannulated with a 22-[place] aortic cannula, two-stage venous cannula and aortic root vent. The patient was subsequently placed on cardiopulmonary bypass and cooled systemically to 34 degrees. Aortic cross-clamp was then carefully placed and 4 degree Celsius cold blood cardioplegia was administered through the aortic root in antegrade fashion. Prompt diastolic arrest was obtained. Left ventricular decompression was confirmed. The heart was cooled systemically with iced saline with an insulation pad in place to protect the phrenic nerve. Throughout the cross-clamp period, at 20-30 minute intervals, antegrade blood cardioplegia was administered to maintain asystole. We then inspected the cardiac surface and coronary anatomy. There was general diffuse adiposity across most of the epicardial surface our first target was the PDA as an extension of the RCA and was approximately 2 mm in size. This vessel was opened up and an end-to-side anastomosis was created over a 2 mm shunt to a portion of the saphenous vein which was then anastomosed to a 4 mm aortotomy with 5-0 Prolene suture. With the rewarming phase of bypass continuing, the left internal mammary artery was brought through a left anterior pericardial window into the field. The OMB was opened up in its proximal one-third and was approximately 2 mm in size. The HATHAWAY was then anastomosed to the OMB with a running 7-0 Prolene suture. It should be noted that all distal coronary anastomoses were performed over the appropriate size coronary shunt which was removed prior to securing the distal suture line. Following this, aortic cross-clamp was released and de-airing maneuvers were performed through the aortic root vent, as well as being confirmed by transesophageal echocardiography. Dobutamine at 3 mcg per kilogram per minute was administered with good chronotropic and inotropic affect. The heart returned to spontaneous sinus rhythm and did not require cardioversion or pacing. After adequate recovery from the cross-clamp period and confirmation of cardiac stability, the patient was weaned from bypass without difficulty. Venous cannula was removed. Heparin was reversed with Protamine and confirmed by measurement of activated clotting time. The heart was then decannulated and cannulation sites were oversewn as required. Pacing wires were placed and brought through the skin and secured. Radiopaque markers were placed on the vein grafts at the level of aorta. Two mediastinal drains were placed and connected to Pleur-evac suction. The wound was carefully irrigated and hemostasis was confirmed. Ankeney retractor was removed and sponge and needle count was correct. The sternum was then reapproximated very carefully with interrupted #7 stainless steel wire with Surgicel strips used beneath the sternal table. Fascia was closed with #1 Vicryl suture with the next layers being closed with 2-0 and 3-0 suture. The skin was reapproximated carefully in a subcuticular manner. Sterile dressings were applied, followed by a vacuum-assisted dressing. The patient was carefully removed from the operating room table and transferred to the Intensive Care Unit. The family was then counseled as to the details of the procedure. Dr. Triplett was notified of our operative findings and procedure details.
[2022-01-01] MEDS: chlorhexidine gluconate 0.12% Btl 473 mL 15 ML MUCOUS MEM (17:09)
[2022-01-01] MEDS: oxyCODONE-APAP 5-325 mg Tablet PO ×2 (17:10→23:55)
[2022-01-01] MEDS: aspirin 81 mg Chew Tablet OG-TUBE (17:11)
--- NOTE | 2022-01-01 17:47 | P.ANESPOST_ITS ---
Inpatient post-anesthesia follow up: Vital signs: Temperature 97.8 F Pulse Rate 99 Respiratory Rate 12 Blood Pressure 123/63 Pulse Oximetry 97 Oxygen Delivery Me thod Mechanical Ventila tion Oxygen Flow Rate Fraction of Inspir ed Oxygen 50 Additional Comments: Taken to ICU on full monitors, intubated, hand ventilated on 100% FiO2 VSS throughout. Handoff report given to ELEMENTARY EDUCATION TEACHER including fluids in/out, medications administered, and operative course. Report accepted.
[2022-01-01 18:30] LABS: Basophils # 0.1 10^3/uL (0.0-0.1); Basophils % 0.2 %; Hemoglobin 12.8 g/dL (11.7-16.6); Lymphocytes # 0.9 10^3/uL (0.8-4.8); Lymphocytes % 4.3 %; Mean Corpuscular HGB Conc 34.6 g/dL (30.0-36.0); Mean Corpuscular Hemoglobin 30.6 pg (28.0-34.0); Mean Corpuscular Volume 88.5 fl (80-94); Mean Platelet Volume 9.7 fL (7.4-10.4); Monocytes # 1.5 10^3/uL (0.2-0.9); Monocytes % 7.1 %; Neutrophils # 18.92 10^3/uL (1.8-7.7); Neutrophils % 87.4 %; Nucleated Red Blood Cells % 0 %; Platelet Count 160 10^3/cmm (130-400); Red Blood Count 4.18 10^6/uL (4.1-5.3); Red Cell Distribution Width 11.9 % (12.1-15.1); White Blood Count 21.6 10^3/uL (4.0-10.0)
--- NOTE | 2022-01-01 18:30 | PC.NURSE ---
CBC and BMP labs check. No electrolyte replacement or blood transfusion indicated.
[2022-01-01 18:48] LABS: Anion Gap 16.2 (5-19); Blood Urea Nitrogen 16 mg/dL (8-23); Carbon Dioxide 23 mmol/L (22-29); Chloride 109 mmol/L (98-107); Glucose 131 mg/dL (65-115); Magnesium 2.1 mg/dL (1.7-2.3); Osmolality Calculated 301 mOsm/kg (285-295); Potassium 4.2 mmol/L (3.5-5.1); Sodium 144 mmol/L (136-145)
[2022-01-01] MEDS: propofol 1,000 MG/100 ML INJ 20.33 MG IV (19:14)
--- NOTE | 2022-01-01 19:25 | PC.NURSE ---
Shift Note: Pt remains sedated and intubated. FIo2 decreased to 50%. IV gtts: Dobutamine, Alessandro-synephrine, Propofol and fluids. He as received albumin twice and Oxycodone once since arrival to ICU. Wound vac remains patent with compressed sponge. No change to SWANZ. Right IJ central line remains patent. Sinus rhythm noted on monitor. No ectopy noted this shift. Murmur and rub auscultated. Pacemaker attached but remains off. Chest tubes patent and draining minimal amounts of serosangiuness fluid( . Mediastinal chest tube has air leak. Urine output more than adequate. See I & Os for chest tube and urine amounts. Frequent safety and comfort rounds continue. Orders and/or nursing care completed as indicated. Patient monitored for response to intervention and treatment(s). Education provided includes lines and tubes, sternal precautions, pain control, restraints and ongoing plan of care Patient's representatives verbalized understanding plan of care and education topics. Pt sedated unable to comprehend at this time. . Will continue to monitor.
[2022-01-01 19:42] LABS: Glucose Point of Care 118 mg/dL (70-110)
[2022-01-01 19:42] LABS: Glucose Point of Care 103 mg/dL (70-110)
[2022-01-01 19:42] LABS: Glucose Point of Care 140 mg/dL (70-110)
[2022-01-01 19:42] LABS: Glucose Point of Care 122 mg/dL (70-110)
[2022-01-01 19:42] LABS: Glucose Point of Care 112 mg/dL (70-110)
--- NOTE | 2022-01-01 20:07 | PC.NURSE ---
Dr. Payton called for update on patient. Notified that core temp is 101.8, order given for Tylenol. Notified of small air leak from mediastinal chest tubes, Dr. Payton aware of air leak. Notified that we are currently weaning sedation and going to try to extubate patient when he is ready. Updated on hemodynamic status.
[2022-01-01 20:08] LABS: Glucose Point of Care 130 mg/dL (70-110)
--- NOTE | 2022-01-01 20:12 | PC.NURSE ---
Unable to scan barcode, pharmacy notified, stated label from OR can not be scanned, will record insulin drip titration on paper flow sheet.
[2022-01-01] MEDS: acetaminophen 500 mg Tablet 1000 MG NG-TUBE (20:23)
[2022-01-01] MEDS: fentaNYL 50 mcg/mL INJ 2mL IVP ×2 (20:38→21:53)
--- NOTE | 2022-01-01 21:43 | PC.NURSE ---
Extubated per RT and placed on O2 at 3L NC. OG tube removed. Tolerated well.
[2022-01-01] MEDS: phenylephrine inj 25 MG in sodium chloride 0.9% 250 ML 12.12 MG IV (22:19)
[2022-01-01 22:38] LABS: Basophils % 0.1 %; Hematocrit 33.2 % (42.0-52.0); Hemoglobin 11.3 g/dL (11.7-16.6); Lymphocytes # 0.7 10^3/uL (0.8-4.8); Lymphocytes % 4.9 %; Mean Corpuscular Hemoglobin 30.3 pg (28.0-34.0); Mean Platelet Volume 9.8 fL (7.4-10.4); Monocytes # 0.8 10^3/uL (0.2-0.9); Monocytes % 6.1 %; Neutrophils # 12.06 10^3/uL (1.8-7.7); Neutrophils % 88.3 %; Nucleated Red Blood Cells % 0 %; Platelet Count 126 10^3/cmm (130-400); Red Blood Count 3.73 10^6/uL (4.1-5.3); White Blood Count 13.7 10^3/uL (4.0-10.0)
[2022-01-01 22:56] LABS: Anion Gap 15.6 (5-19); Blood Urea Nitrogen 17 mg/dL (8-23); Calcium 8.5 mg/dL (8.5-10.5); Carbon Dioxide 23 mmol/L (22-29); Chloride 109 mmol/L (98-107); Glucose 159 mg/dL (65-115); Osmolality Calculated 303 mOsm/kg (285-295); Potassium 3.6 mmol/L (3.5-5.1); Sodium 144 mmol/L (136-145)
[2022-01-01 23:09] LABS: Glucose Point of Care 126 mg/dL (70-110)
[2022-01-01 23:09] LABS: Glucose Point of Care 158 mg/dL (70-110)
[2022-01-01 23:09] LABS: Glucose Point of Care 157 mg/dL (70-110)
[2022-01-01] MEDS: potassium chloride premix 100 ML 50 MEQ IV (23:44)
[2022-01-02] VITALS (66 sets, daily range): BP systolic 102–145; BP diastolic 58–93; PULSE 80–105; RESP 9–34; TEMP 36.9–37.3; O2SAT 90–97
[2022-01-02 02:12] LABS: Glucose Point of Care 129 mg/dL (70-110)
[2022-01-02 02:12] LABS: Glucose Point of Care 128 mg/dL (70-110)
[2022-01-02 02:12] LABS: Glucose Point of Care 129 mg/dL (70-110)
[2022-01-02] MEDS: fentaNYL 50 mcg/mL INJ 2mL IVP ×3 (03:16→16:21)
[2022-01-02 03:47] LABS: ABG PCO2 39.5 mmHg (35-45); ABG PH Result 7.44 (7.35-7.45); Alveolar-Arterial Oxygen Gradi 3.8 mmHg (5-10); Arterial Blood Gas Hematocrit 35.6 % (42-52); Base Excess ABG 2.2 mmol/L (-2.0-2.0); Blood Gas Allen Test Pos; Blood Gas Sample Site Radial, right; Blood Gas Sample Type Arterial; HCO3 ABG 26.6 mmol/L (22-26); HGB O2 Sat 91.8 % (95-100); Ionized Calcium Level - ABG 1.1 mmol/L (1.1-1.4); Methemoglobin 1.1 % (0.4-1.5); Oxygen Device NC; Oxygen Saturation ABG 92.8; PO2 ABG 71.1 mmHg (80.0-100.0); Potassium Level - ABG 3.9 mmol/L (3.5-5.0); Total Hemoglobin 11.6 g/dL (14-18)
[2022-01-02 03:51] LABS: Glucose Point of Care 159 mg/dL (70-110)
[2022-01-02 04:18] LABS: Glucose Point of Care 106 mg/dL (70-110)
[2022-01-02 04:29] LABS: Basophils % 0.1 %; Hematocrit 34.3 % (42.0-52.0); Hemoglobin 11.4 g/dL (11.7-16.6); Lymphocytes # 1.1 10^3/uL (0.8-4.8); Lymphocytes % 9.5 %; Mean Corpuscular HGB Conc 33.2 g/dL (30.0-36.0); Mean Corpuscular Hemoglobin 29.8 pg (28.0-34.0); Mean Corpuscular Volume 89.6 fl (80-94); Mean Platelet Volume 10.2 fL (7.4-10.4); Monocytes # 1.1 10^3/uL (0.2-0.9); Monocytes % 8.9 %; Neutrophils # 9.65 10^3/uL (1.8-7.7); Neutrophils % 81.1 %; Nucleated Red Blood Cells % 0 %; Platelet Count 132 10^3/cmm (130-400); Red Blood Count 3.83 10^6/uL (4.1-5.3); White Blood Count 11.9 10^3/uL (4.0-10.0)
[2022-01-02 04:56] LABS: Anion Gap 13.2 (5-19); Blood Urea Nitrogen 19 mg/dL (8-23); Calcium 8.5 mg/dL (8.5-10.5); Carbon Dioxide 24 mmol/L (22-29); Chloride 109 mmol/L (98-107); Glucose 126 mg/dL (65-115); INR 1.28 (0.8-1.2); Magnesium 2.1 mg/dL (1.7-2.3); Osmolality Calculated 298 mOsm/kg (285-295); Potassium 4.2 mmol/L (3.5-5.1); Sodium 142 mmol/L (136-145)
[2022-01-02 04:57] LABS: Partial Thromboplastin Time 37.2 SECONDS (23.9-36.7)
[2022-01-02 05:10] LABS: Glucose Point of Care 89 mg/dL (70-110)
[2022-01-02] MEDS: sodium chloride 0.9% 1,000 ML 75 ML IV (05:39)
[2022-01-02 05:58] LABS: Glucose Point of Care 91 mg/dL (70-110)
--- NOTE | 2022-01-02 06:00 | XR_ITS ---
WS: [id number] Exam: XR chest 1V portable [id number] Date/Time of Exam: 01/02/2022 4:53 AM Reason For Exam: s/p cabg Comparison 01/01/2022. The lungs are fully inflated. Left lower lobe atelectasis again noted without significant change. Hea rt size is top limits normal. No pleural effusion seen. ET tube and NG tube have been removed. Right- sided cardiac catheter remains in place unchanged in location. Median sternotomy noted. Left-sided th oracostomy tube unchanged. XR/XR chest 1V portable [id number] IMPRESSION: 1. Mild left lower lobe atelectasis. No acute infiltrate or pneumothorax. 2. Cardiac catheter remains in place. Left-sided chest tube in place unchanged.
--- NOTE | 2022-01-02 06:00 | ECG_ITS ---
[facility] Test Date: 2022-01-02 Pat Name: Efrem Patel Department: Room: ICU11 Gender: Male Food Manager: : 1945 Requested By: Michele Payton Order Number: [id number] Daniel MD: Lc Jung M.D. Measurements Intervals Palmer Rate: 89 P: 40 SD: 140 QRS: 29 QRSD: 112 T: 84 QT: 375 QTc: 458 Interpretive Statements SINUS RHYTHM INCOMPLETE RIGHT BUNDLE BRANCH BLOCK [90+ ms QRS DURATION, TERMINAL R IN V1/V2, 40+ ms S IN I/aVL/V4/V5/V6] NONSPECIFIC T-WAVE ABNORMALITY Compared to ECG 01/01/2022 17:01:18 Incomplete right bundle-branch block still present Possible ischemia no longer present T-wave abnormality still present Electronically Signed On 01-03-2022 17:12:30 CDT by Lc Jung M.D. [id number]
--- NOTE | 2022-01-02 06:02 | PM.PN ---
Subjective Subjective: Postop day #1 status post CABG x2. Extubated. Neurologically intact. Chest tube output 400 cc since surgery. 1 brief episode of nonsustained V. tach last night approximately 15 beats. Otherwise, in sinus rhythm. EKG is stable with no acute changes. Postop discomfort under good control. Laboratory data reviewed. H&H is stable. No debbi infiltrates on chest x-ray. Increased pulmonary vascular markings consistent with volume expansion. Intake and output is up 1 L. Vitals/I&O/Wt Last Vital Signs Temp 97.8 F 01/01/22 04:57 Pulse 87 01/02/22 05:30 Resp 25 H 01/02/22 05:30 BP 125/64 01/02/22 05:30 Pulse Ox 94 01/02/22 05:30 01/01/22 01/01/22 01/02/22 14:59 22:59 06:59 Intake Total 140 / 140 5131.448 / 5271.448 418.887 / 5690.335 Output Total 4392 / 4392 510 / 4902 Balance 140 / 140 739.448 / 879.448 -91.113 / 788.335 Physical Exam Chest: OTHER: Chest wall is stable. Wound VAC dressing and support lines are in place. Resp: OTHER: Decreased breath sounds in the bases consistent with need for pulmonary toilet. Cardio: COMMON NORMALS: regular rate, regular rhythm and S1 normal heart sound present RATE: regular rate RHYTHM: regular rhythm HEART SOUNDS: S1 normal heart sound present GI: OTHER: Hypoactive bowel sounds. Extremity: NARRATIVE EXTREMITY EXAM: 1+ peripheral edema. Neuro: OTHER: Neurologically intact. Urinary Catheter Management: Cuevas Latex Free: Cath Placed During This Visit: yes Reason for Continuing Indwelling Catheter: Accurate Measurement of Urinary Output in Critically Ill Patients Urinary Catheter Date of Insertion: 01/01/22 Urinary Catheter Time of Insertion: 07:30 Data : 01/02/22 03:44 01/02/22 03:44 A&P Assessment and plan (1) Status post aorto-coronary artery bypass graft: POD #1 status post CABG Plan: Initiate aspirin. Metoprolol 25 mg twice daily. Lasix 20 mg IV now. LIONEL Mcdonough. LIONEL Coats. CBC, BMP, chest x-ray in a.m. Out of bed in chair this afternoon. 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
[2022-01-02] MEDS: FUROsemide 10 mg/mL SDV 2mL 20 MG IVP (06:14)
[2022-01-02] MEDS: oxyCODONE-APAP 5-325 mg Tablet PO ×3 (06:33→20:10)
[2022-01-02] MEDS: insulin regular-human 250 UNIT in sodium chloride 0.9% 250 ML IV (07:00)
--- NOTE | 2022-01-02 07:27 | ANE.PACU2 ---
Inpatient post-anesthesia follow up: Airway intact: Yes Vital signs: Temperature 97.8 F Pulse Rate 86 Respiratory Rate 19 Blood Pressure 124/75 Pulse Oximetry 94 Oxygen Delivery Me thod Nasal Cannula Oxygen Flow Rate 100 Fraction of Inspir ed Oxygen 30 Hydration adequate: No Nausea and vomiting: No Pain level: 3 Mental status: Baseline
[2022-01-02] MEDS: morphine 4 mg/mL SDV 1 mL 2 MG IVP (07:39)
[2022-01-02] MEDS: pantoprazole DR 40 mg Tablet PO (07:50)
[2022-01-02] MEDS: metoprolol tartrate 25 mg Tablet PO ×2 (07:50→20:10)
[2022-01-02] MEDS: aspirin 325 mg Tablet PO (07:51)
[2022-01-02] MEDS: chlorhexidine gluconate 0.12% Btl 473 mL 15 ML MUCOUS MEM ×2 (09:15→18:31)
--- NOTE | 2022-01-02 11:00 | PC.NURSE ---
Dr Payton in unit. ORders to removed art line received. Art line removed. PRessure held until hemostasis obtained. Gauze and biocclusive dressing applied. Pt tolerated very well.
[2022-01-02 12:44] LABS: ABG PCO2 38.9 mmHg (35-45); ABG PCO2 44.7 mmHg (35-45); ABG PCO2 44.8 mmHg (35-45); ABG PH Result 7.35 (7.35-7.45); Arterial Blood Gas Hematocrit 31.9 % (42-52); Base Excess ABG -0.7 mmol/L (-2.0-2.0); Base Excess ABG -1.3 mmol/L (-2.0-2.0); Base Excess ABG -4.7 mmol/L (-2.0-2.0); Blood Gas Sample Type Arterial; Carboxyhemoglobin 0.3 %THgb (0.4-20.1); Carboxyhemoglobin < 0.0 %THgb (0.4-20.1); HCO3 ABG 21.8 mmol/L (22-26); HCO3 ABG 24.5 mmol/L (22-26); HGB O2 Sat 97.9 % (95-100); HGB O2 Sat 98.1 % (95-100); HGB O2 Sat 98.6 % (95-100); Ionized Calcium Level - ABG 1.2 mmol/L (1.1-1.4); Methemoglobin 0.6 % (0.4-1.5); Methemoglobin 0.8 % (0.4-1.5); Oxygen Saturation ABG 98.2; Oxygen Saturation ABG 98.3; Oxygen Saturation ABG 99.7; Potassium Level - ABG 4.1 mmol/L (3.5-5.0); Potassium Level - ABG 5.4 mmol/L (3.5-5.0); Total Hemoglobin 10.4 g/dL (14-18); Total Hemoglobin 13.4 g/dL (14-18); Total Hemoglobin 9.8 g/dL (14-18)
[2022-01-02 12:45] LABS: ABG PCO2 46.3 mmHg (35-45); ABG PCO2 47.3 mmHg (35-45); ABG PH Result 7.27 (7.35-7.45); ABG PH Result 7.31 (7.35-7.45); Arterial Blood Gas Hematocrit 31.2 % (42-52); Arterial Blood Gas Hematocrit 42.2 % (42-52); Base Excess ABG -2.5 mmol/L (-2.0-2.0); Base Excess ABG -5.7 mmol/L (-2.0-2.0); Blood Gas Sample Type Arterial; Carboxyhemoglobin < 0.0 %THgb (0.4-20.1); HCO3 ABG 21.3 mmol/L (22-26); HCO3 ABG 23.9 mmol/L (22-26); HGB O2 Sat 97.9 % (95-100); Ionized Calcium Level - ABG 1.1 mmol/L (1.1-1.4); Methemoglobin 0.6 % (0.4-1.5); Methemoglobin 0.8 % (0.4-1.5); Oxygen Saturation ABG 98.1; Oxygen Saturation ABG 98.5; Potassium Level - ABG 4.8 mmol/L (3.5-5.0); Potassium Level - ABG 5.3 mmol/L (3.5-5.0); Total Hemoglobin 10.2 g/dL (14-18); Total Hemoglobin 13.8 g/dL (14-18)
[2022-01-02 12:53] LABS: Blood Gas Sample Site Not specified
[2022-01-02 12:58] LABS: Blood Gas Sample Site Not specified
[2022-01-02 13:00] LABS: ABG PCO2 53.3 mmHg (35-45); ABG PH Result 7.35 (7.35-7.45); Alveolar-Arterial Oxygen Gradi 3.6 mmHg (5-10); Arterial Blood Gas Hematocrit 30.4 % (42-52); Base Excess ABG 3.1 mmol/L (-2.0-2.0); Blood Gas Sample Site Not specified; Blood Gas Sample Type Venous; HCO3 ABG 29.5 mmol/L (22-26); HGB O2 Sat 87.4 % (95-100); Methemoglobin 0.6 % (0.4-1.5); PO2 ABG 58.5 mmHg (80.0-100.0); Potassium Level - ABG 5.1 mmol/L (3.5-5.0); Total Hemoglobin 9.9 g/dL (14-18)
[2022-01-02 13:02] LABS: Blood Gas Sample Site Not specified
[2022-01-02 13:04] LABS: ABG PCO2 41.4 mmHg (35-45); ABG PH Result 7.37 (7.35-7.45); Arterial Blood Gas Hematocrit 32.6 % (42-52); Base Excess ABG -1.1 mmol/L (-2.0-2.0); Blood Gas Sample Site Not specified; Blood Gas Sample Type Arterial; Carboxyhemoglobin < 0.0 %THgb (0.4-20.1); HCO3 ABG 24.1 mmol/L (22-26); HGB O2 Sat 98.2 % (95-100); Methemoglobin 0.6 % (0.4-1.5); Oxygen Saturation ABG 98.3; Potassium Level - ABG 5.4 mmol/L (3.5-5.0); Total Hemoglobin 10.6 g/dL (14-18)
[2022-01-02 13:07] LABS: Blood Gas Sample Site Not specified
[2022-01-02 13:09] LABS: ABG PCO2 45.1 mmHg (35-45); ABG PH Result 7.35 (7.35-7.45); Base Excess ABG -0.9 mmol/L (-2.0-2.0); Blood Gas Sample Site Not specified; Blood Gas Sample Type Arterial; Carboxyhemoglobin 0.4 %THgb (0.4-20.1); HGB O2 Sat 98.3 % (95-100); Ionized Calcium Level - ABG 1.3 mmol/L (1.1-1.4); Oxygen Saturation ABG 99.6; Potassium Level - ABG 4.2 mmol/L (3.5-5.0); Total Hemoglobin 12.7 g/dL (14-18)
[2022-01-02 13:14] LABS: Blood Gas Sample Site Umbilical cord
--- NOTE | 2022-01-02 14:45 | PC.NURSE ---
Pt up out of chair. without difficulty. Pt ambulated 2 laps around ICU unit, PT at pt's side. Pt tolerated very well.
--- NOTE | 2022-01-02 16:47 | P.CONIM_ITS ---
Providers/Reason For Consult Consulting Physician/Specialty*: Yomi Triplett MD/ Cardiology Reason for Consult*: Medical management post CABG Requesting Physician: Dr Payton Attending Physician: Michele Payton MD Primary Care Provider: Paolo Berumen MD History of Present Illness History of Present Illness Efrem Patel is a 76 year old male with past medical history of hypertension, hyperlipidemia, statin intolerance who had recent abnormal stress test underwent coronary angiogram. It showed MECHANICAL SPECIALIST of RCA and calcified severe stenosis of ostial left circumflex artery. Patient underwent successful revascularization yesterday with two-vessel CABG with HATHAWAY to OM and SVG to RCA. Patient is doing well. Patient has been extubated. Denies chest pressure. Has incision site discomfort. Blood pressure is controlled. Had 1 nonsustained VT episode overnight. Review of Systems Const: Denies: fever(s), chills or night sweats Eyes: Reports: blurry vision ENMT: Denies: nasal congestion or post nasal drip Card: Reports: dyspnea on exertion; Denies: palpitations, irregular heart rhythm or swelling of feet/ankles Resp: Reports: non-productive cough; Denies: productive cough GI: Denies: nausea, vomiting or heartburn : Denies: difficulty urinating Musc: Reports: neck pain, back pain and joint pain Skin/Breast: Denies: rash or pruritus Psych: Reports: anxiety; Denies: depression Endo: Denies: polyuria Jose/Lymph: Denies: easy bruising All/Imm: Denies: urticaria Medications/Allergies Home Medications Medication Instructions Recorded Confirmed Last Taken Type aspirin 81 mg tablet,delayed 81 mg PO DAILY 04/01/20 01/01/22 12/22/21 History release (Aspir-) metoprolol tartrate 25 mg tablet 12.5 mg PO BID 04/01/20 01/01/22 01/01/22 04:00 History nitroglycerin 0.4 mg sublingual 0.4 mg SUBLINGUAL Q5M PRN 04/01/20 12/20/21 Unknown History tablet (Nitrostat) acetaminophen 650 mg 650 mg PO Q12H 10/21/20 01/01/22 12/29/21 History tablet,extended release (Tylenol Arthritis Pain) evolocumab 420 mg/3.5 mL 420 mg SUBCUT DIRECTED 04/28/21 01/01/22 12/17/21 History subcutaneous wearable injector (Repatha Pushtronex) gemfibrozil 600 mg tablet 600 mg PO BID #180 tab 05/31/21 01/01/22 12/31/21 Rx CO Q 10 100 mg PO BID 10/31/21 01/01/22 12/31/21 History arginine (L-arginine) 500 mg 500 mg PO DAILY 12/08/21 01/01/22 12/31/21 History capsule vitamins A,C,J-ktxf-waforz 14,320 1 cap PO DAILY cap 12/08/21 01/01/22 12/31/21 History unit-226 mg-200 unit capsule (PreserVision AREDS) isosorbide mononitrate 30 mg 30 mg PO DAILY #90 tab 12/29/21 01/01/22 01/01/22 04:00 Rx tablet,extended release 24 hr Allergies Allergy/AdvReac Type Severity Reaction Status Date / Time Paeyapw-AVV-WcR Reductase Allergy Severe Can't get Verified 01/01/22 05:07 Inhibitor out of bed rosuvastatin Allergy Unknown Unknown Verified 01/01/22 05:07 Current Medications Generic Name Dose Route Start Last Admin Trade Name Freq PRN Reason Stop Dose Admin Aspirin 325 mg 01/02/22 09:00 01/02/22 07:51 Aspirin 325 Mg Tablet PO 325 mg DAILY HARI Administration Chlorhexidine Gluconate 15 ml 01/01/22 18:00 01/02/22 09:15 Chlorhexidine Gluconate 0.12% Btl 473 Ml MUCOUS MEM 15 ml BID HARI Administration Fentanyl 50 mcg 01/01/22 15:37 01/02/22 16:21 Fentanyl 50 Mcg/Ml Inj 2ml IVP 50 mcg Q1H PRN Administration SEVERE PAIN Cefuroxime Sodium 1,500 mg/ 100 mls @ 200 mls/hr 01/02/22 01:00 01/02/22 13:30 Sodium Chloride IV 01/03/22 13:29 Infused Q12H HARI Infusion Protocol Albumin Human 12.5 gm in 250 mls @ 600 mls/hr 01/01/22 15:37 01/01/22 22:35 Albumin IV Infused PRN PRN Infusion For CVP < 4 or SBP< 90 Insulin Human Regular 250 unit 252.5 mls @ 0 mls/hr 01/01/22 15:37 01/02/22 14:10 / Sodium Chloride IV 2.8 unit/hr .Q0M HARI 2.83 mls/hr Titration Protocol Per Protocol Phenylephrine HCl 25 mg/ 252.5 mls @ 0 mls/hr 01/01/22 15:37 01/01/22 23:58 Sodium Chloride IV 0 mcg/min .Q0M PRN 0 mls/hr HYPOTENSION Titration Protocol Per Protocol Sodium Chloride 1,000 mls @ 75 mls/hr 01/01/22 15:37 01/02/22 05:39 Sodium Chloride 0.9% IV 75 mls/hr .[id number] HARI Administration Metoprolol Tartrate 25 mg 01/02/22 09:00 01/02/22 07:50 Metoprolol Tartrate 25 Mg Tablet PO 25 mg BID@0900,2100 HARI Administration Morphine Sulfate 2 mg 01/01/22 15:37 01/02/22 07:39 Morphine 4 Mg/Ml Sdv 1 Ml IVP 2 mg Q1H PRN Administration BREAKTHROUGH PAIN Oxycodone/Acetaminophen 1 - 2 tab 01/01/22 15:37 01/02/22 12:41 Oxycodone-Apap 5-325 Mg Tablet PO 1 tab Q6H PRN Administration MILD TO MODERATE PAIN Pantoprazole Sodium 40 mg 01/02/22 09:00 01/02/22 07:[address] 40 Mg Tablet PO 40 mg DAILY HARI Administration PFSH Acute PFSH: Medical History ASHD (arteriosclerotic heart disease) Dyslipidemia Fibromyalgia Statin intolerance Surgical History H/O knee surgery S/P PTCA (percutaneous transluminal coronary angioplasty) Family History Other CAD (coronary artery disease) Cancer Social History Smoking and tobacco status: former smoker Quit status (tobacco): has quit using tobacco Year quit tobacco: 1961 Former quit date comment: Smoked 1/2 pack x 6 months Alcohol intake: never Household members: spouse Marital status: service: No Vitals/I&O/Wt Last Vital Signs Temp 98.4 F 01/02/22 08:15 Pulse 83 01/02/22 15:42 Resp 18 01/02/22 16:21 BP 119/58 01/02/22 12:30 Pulse Ox 93 01/02/22 16:21 01/02/22 01/02/22 01/02/22 06:59 14:59 22:59 Intake Total 418.887 / 5690.335 1406.838 / 1406.838 Output Total 595 / 4987 1115 / 1115 Balance -176.113 / 703.335 291.838 / 291.838 Weight last 48 hrs Weight 179 lb Physical Exam Narrative: GENERAL: Patient is alert, awake and oriented x3. [] NECK: No jugular vein distension. [] HEENT: No cyanosis. No icterus. No pallor. [] HEART: Regular S1 and S2. No murmur, rub or gallop. Has sternotomy incision dressing. [] LUNGS: Clear to auscultate bilaterally. [] CENTRAL NERVOUS SYSTEM: Grossly nonfocal. [] EXTREMITIES: Lower extremities with 1+ edema bilaterally. Pulses palpable in the lower extremities, both dorsalis pedis and posterior tibial. [] Urinary Catheter Management: Cuevas Latex Free: Cath Placed During This Visit: yes Reason for Continuing Indwelling Catheter: Accurate Measurement of Urinary Output in Critically Ill Patients Urinary Catheter Date of Insertion: 01/01/22 Urinary Catheter Time of Insertion: 07:30 Data : 01/03/22 03:30 01/03/22 03:30 A&P Assessment and plan (1) Status post aorto-coronary artery bypass graft: Status: Acute (2) Two-vessel coronary artery disease: Status: Acute (3) Hypertension: Status: Acute (4) Statin intolerance: Status: Acute (5) ASHD (arteriosclerotic heart disease): Status: Acute Plan Patient is s/p CABG with SVG to RCA and HATHAWAY to OM. This is postop day 1. Doing well. Extubated and was ambulated today. Aspirin and metoprolol. Patient has statin intolerance as outpatient will resume Repatha. Blood pressure is stable. Continue telemetry monitoring. Thank you for involving us with care of this patient. We will continue to follow. Please call with questions Coding Level of Care Code Acute Insulation Sprayer for Chg Fwd Diagnoses Status post aorto-coronary artery bypass graft Z95.1 Two-vessel coronary artery disease I25.10 Hypertension I10 Statin intolerance Z78.9 ASHD (arteriosclerotic heart disease) I25.10
--- NOTE | 2022-01-02 18:35 | PC.NURSE ---
Pt requested to get out of bed to ambulate. Pt ambulated 2 times around ICU unit. Pt then to chair. Pt tolerated well.
[2022-01-02 19:05] LABS: Glucose Point of Care 104 mg/dL (70-110)
[2022-01-02 19:05] LABS: Glucose Point of Care 122 mg/dL (70-110)
[2022-01-02 19:05] LABS: Glucose Point of Care 93 mg/dL (70-110)
[2022-01-02 19:05] LABS: Glucose Point of Care 101 mg/dL (70-110)
[2022-01-02 19:05] LABS: Glucose Point of Care 104 mg/dL (70-110)
[2022-01-02 19:05] LABS: Glucose Point of Care 107 mg/dL (70-110)
[2022-01-02 19:05] LABS: Glucose Point of Care 91 mg/dL (70-110)
[2022-01-02 19:05] LABS: Glucose Point of Care 121 mg/dL (70-110)
[2022-01-02 19:05] LABS: Glucose Point of Care 107 mg/dL (70-110)
[2022-01-02 19:05] LABS: Glucose Point of Care 115 mg/dL (70-110)
[2022-01-02 19:05] LABS: Glucose Point of Care 112 mg/dL (70-110)
[2022-01-02 19:05] LABS: Glucose Point of Care 99 mg/dL (70-110)
[2022-01-02 19:05] LABS: Glucose Point of Care 134 mg/dL (70-110)
--- NOTE | 2022-01-02 19:42 | PC.NURSE ---
Shift Note: Pt progressing remarkably well. He only has IV fluids and insulin infusing. No ectopy noted on monitor. Pt does guard and grunt with breathing, he shallow breaths some. He does use the IS and can reach 1000. He has been performing leg exercised suggested by PT on his own volition. He has been tolerating clear liquid meals well. Art line removed today. Chest tubes had serosangiouness drainage: Mediastinal 135 ml and Pleural 93ml output. Adequate urine ouput this shift. He has been out of bed to chair twice and has ambulated twice this shift, each time 2 laps around the nurses station. Frequent safety and comfort rounds continue. Orders and/or nursing care completed as indicated. Patient monitored for response to intervention and treatment(s). Education provided includes sternal precautions, activity, blood sugar checks and insulin gtt, metoprolol, fentanyl and morphine. Patient and/or branch customer service representative verbalizes understanding of plan of care and medications Will continue to monitor.
[2022-01-02 21:35] LABS: Glucose Point of Care 121 mg/dL (70-110)
[2022-01-02 21:35] LABS: Glucose Point of Care 103 mg/dL (70-110)
[2022-01-02 22:40] LABS: Glucose Point of Care 97 mg/dL (70-110)
[2022-01-02 23:36] LABS: Glucose Point of Care 99 mg/dL (70-110)
[2022-01-03] VITALS (28 sets, daily range): BP systolic 102–146; BP diastolic 57–77; PULSE 79–96; RESP 15–26; TEMP 36.4–37.1; O2SAT 90–97
[2022-01-03 00:50] LABS: Glucose Point of Care 95 mg/dL (70-110)
[2022-01-03 01:49] LABS: Glucose Point of Care 96 mg/dL (70-110)
[2022-01-03] MEDS: oxyCODONE-APAP 5-325 mg Tablet PO ×2 (01:56→13:57)
[2022-01-03 02:56] LABS: Glucose Point of Care 107 mg/dL (70-110)
[2022-01-03 03:56] LABS: Glucose Point of Care 104 mg/dL (70-110)
[2022-01-03 04:15] LABS: Basophils % 0.2 %; Hematocrit 34.6 % (42.0-52.0); Hemoglobin 11.4 g/dL (11.7-16.6); Lymphocytes # 1.2 10^3/uL (0.8-4.8); Lymphocytes % 9.6 %; Mean Corpuscular HGB Conc 32.9 g/dL (30.0-36.0); Mean Corpuscular Hemoglobin 30.5 pg (28.0-34.0); Mean Corpuscular Volume 92.5 fl (80-94); Mean Platelet Volume 10.1 fL (7.4-10.4); Monocytes % 7.5 %; Neutrophils # 10.46 10^3/uL (1.8-7.7); Neutrophils % 82.1 %; Nucleated Red Blood Cells % 0 %; Platelet Count 117 10^3/cmm (130-400); Red Blood Count 3.74 10^6/uL (4.1-5.3); White Blood Count 12.7 10^3/uL (4.0-10.0)
[2022-01-03 04:46] LABS: Anion Gap 11.5 (5-19); Blood Urea Nitrogen 13 mg/dL (8-23); Calcium 8.5 mg/dL (8.5-10.5); Carbon Dioxide 27 mmol/L (22-29); Chloride 104 mmol/L (98-107); Glucose 104 mg/dL (65-115); Osmolality Calculated 288 mOsm/kg (285-295); Potassium 3.5 mmol/L (3.5-5.1); Sodium 139 mmol/L (136-145)
[2022-01-03 05:03] LABS: Glucose Point of Care 100 mg/dL (70-110)
--- NOTE | 2022-01-03 05:30 | P.PN_ITS ---
Subjective Subjective: Postop day #2 status post CABG x2. Uneventful night. Nurses report no concerns. Up on bedside toilet this morning for bowel movement. Intake and output is up to 1800 cc past 24 hours. Chest x-ray revealed some platelike atelectasis in the left lower lobe area. Support lines remain in good position. Chest tube output has decreased to 278 cc past 24 hours. Sternotomy discomfort under good control. Vitals/I&O/Wt Last Vital Signs Temp 98.8 F 01/03/22 01:00 Pulse 84 01/03/22 04:00 Resp 16 01/03/22 04:00 BP 144/73 01/03/22 04:00 Pulse Ox 94 01/03/22 04:00 01/02/22 01/02/22 01/03/22 14:59 22:59 06:59 Intake Total 2005.838 / 2005.838 1971.631 / 3978.469 211.71 / 4190.179 Output Total 1233 / 1233 752 / 1985 365 / 2350 Balance 773.838 / 332.050 1156.631 / 1993.469 -153.29 / 1840.179 Weight last 48 hrs Weight 179 lb Physical Exam Const: COMMON NORMALS: patient oriented x3 Chest: OTHER: Chest wall is stable. Wound VAC dressing remains in place. Support lines in position. Resp: OTHER: Decreased breath sounds in the base with some fine crackles. Will need continued focus on pulmonary toilet. Cardio: COMMON NORMALS: regular rate, regular rhythm and S1 normal heart sound present RATE: regular rate RHYTHM: regular rhythm HEART SOUNDS: S1 normal heart sound present OTHER: Chest tube rub can be heard. Extremity: NARRATIVE EXTREMITY EXAM: Still a bit of peripheral edema. Neuro: COMMON NORMALS: patient oriented x3 and no focal motor deficits Urinary Catheter Management: Cuevas Latex Free: Cath Placed During This Visit: yes Reason for Continuing Indwelling Catheter: Accurate Measurement of Urinary Output in Critically Ill Patients Urinary Catheter Date of Insertion: 01/01/22 Urinary Catheter Time of Insertion: 07:30 Data : 01/03/22 03:30 01/03/22 03:30 A&P Assessment and plan (1) Status post aorto-coronary artery bypass graft: Postop day #2 status post CABG x2. Volume expansion. Platelike atelectasis. Hypokalemia Plan: Lasix 20 mg IV now. Potassium chloride 40 mEq IV piggyback. Saline lock IV fluids. Continue focus pulmonary toilet. BMP at 2 PM. CBC, BMP, magnesium level, chest x-ray in a.m. Increase ambulation I will leave chest tubes in for another 24 hours and hopefully remove tomorrow and plan for transfer to [facility]. Status: Acute Attestations Medical Necessity Statement*: Postop day #2 status post CABG x2 Coding Level of Care Code Acute Airborne Operations Superintendent for Chg Fwd Diagnoses Status post aorto-coronary artery bypass graft Z95.1
--- NOTE | 2022-01-03 06:00 | XR_ITS ---
WS: [id number] Exam: XR chest 1V portable [id number] Date/Time of Exam: 01/03/2022 4:40 AM Reason For Exam: POD#2 s/p cabg Comparison 01/02/2022. Left lower lobe atelectasis unchanged. The lungs are fully expanded. Cardiac catheter is been removed . A right-sided IJ catheter ends the cavoatrial junction. Heart size is unchanged. The mediastinum is not widened. Left chest tube unchanged in location. XR/XR chest 1V portable [id number] IMPRESSION: 1. Left lower lobe atelectasis unchanged. 2. Right IJ catheter and left chest tube both in satisfactory position.
[2022-01-03] MEDS: FUROsemide 10 mg/mL SDV 2mL 20 MG IVP (06:11)
[2022-01-03] MEDS: potassium chloride premix 100 ML 25 MEQ IV (06:11)
[2022-01-03 06:12] LABS: Glucose Point of Care 91 mg/dL (70-110)
[2022-01-03 07:24] LABS: Glucose Point of Care 95 mg/dL (70-110)
[2022-01-03 08:42] LABS: Glucose Point of Care 86 mg/dL (70-110)
[2022-01-03] MEDS: aspirin 325 mg Tablet PO (08:49)
[2022-01-03] MEDS: pantoprazole DR 40 mg Tablet PO (08:49)
[2022-01-03] MEDS: metoprolol tartrate 25 mg Tablet PO ×2 (08:49→21:04)
--- NOTE | 2022-01-03 10:12 | P.PN_ITS ---
Subjective Subjective: Patient is doing well. Denies chest pain. Received lasix today Vitals/I&O/Wt Last Vital Signs Temp 98.8 F 01/03/22 01:00 Pulse 93 01/03/22 09:00 Resp 24 H 01/03/22 09:00 BP 118/67 01/03/22 09:00 Pulse Ox 92 01/03/22 09:00 01/02/22 01/03/22 01/03/22 22:59 06:59 14:59 Intake Total 1971.631 / 3978.469 311.71 / 4290.179 313.15 / 313.15 Output Total 1984 1225 / 3210 150 / 150 Balance 1219.631 / 1993.469 -913.29 / 1080.179 163.15 / 163.15 Weight last 48 hrs Weight 179 lb Physical Exam Narrative: GENERAL: Patient is alert, awake and oriented x3. [] NECK: No jugular vein distension. [] HEENT: No cyanosis. No icterus. No pallor. [] HEART: Regular S1 and S2. No murmur, rub or gallop.? Has sternotomy incision dressing.? [] LUNGS: Clear to auscultate bilaterally. [] CENTRAL NERVOUS SYSTEM: Grossly nonfocal. [] EXTREMITIES: Lower extremities with 1+ edema bilaterally. Pulses palpable in the lower extremities, both dorsalis pedis and posterior tibial. [] Urinary Catheter Management: Cuevas Latex Free: Cath Placed During This Visit: yes Reason for Continuing Indwelling Catheter: Accurate Measurement of Urinary Output in Critically Ill Patients Urinary Catheter Date of Insertion: 01/01/22 Urinary Catheter Time of Insertion: 07:30 Data : 01/03/22 03:30 01/03/22 16:35 A&P Assessment and plan (1) Status post aorto-coronary artery bypass graft: Status: Acute (2) Two-vessel coronary artery disease: Status: Acute (3) Hypertension: Status: Acute (4) Statin intolerance: Status: Acute (5) ASHD (arteriosclerotic heart disease): Status: Acute Plan Patient is s/p CABG with SVG to RCA and HATHAWAY to OM. This is postop day 2. Doing well. Extubated and ambulation. Increase ambulation Recieved IV lasix. Aspirin and metoprolol. Patient has statin intolerance as outpatient will resume Repatha. Blood pressure is stable. Continue telemetry monitoring. Monitor electrolytes with goal K>4 and Mg>2 Thank you for involving us with care of this patient. We will continue to follow. Please call with questions Attestations Medical Necessity Statement*: Care expected to cross 2 midnights. Coding Level of Care Code Acute Prize Coordinator for Kiley Roger Diagnoses Status post aorto-coronary artery bypass graft Z95.1 Two-vessel coronary artery disease I25.10 Hypertension I10 Statin intolerance Z78.9 ASHD (arteriosclerotic heart disease) I25.10
[2022-01-03 11:41] LABS: Glucose Point of Care 112 mg/dL (70-110)
--- NOTE | 2022-01-03 12:05 | PC.CHAP ---
Pastoral Care Encounter/Spiritual Assessment Type of Contact [] Declined crew mess attendant visit [] Patient/Family/Request visit [] Outpatient visit [] Follow-up visit [] Physician referral [] Code/Alert [x] Routine visit [] Staff referral [] Actively dying [] Patient sleeping [x] Family support [] [] Out of room [] Palliative care [] [] Receiving care in room [] Pre-surgical visit [] Trauma [] Long length of stay [x] ICU visit [] Other: Relational/Emotional Strength [] Patient feels connected with others/family/visitors/staff [] Distress [] Loneliness/isolation [] Abandonment Spirituality of Patient [] Person of Trista [] Attends Religious of their Trista [] Believes in Prayer [] Reads Bible or Adventist materials [] There are Spiritual issues to be addressed Regulator Tester Interventions [x] Prayer [] Active listening [] Non-anxious presence [] Spiritual/emotional support [] Crisis/trauma care [] Spiritual counseling [] Bereavement support [] Provided bereavement packet [] Provided Bible/devotional materials [] Provided toy/stuffed animal, coloring book to patient or family member [] Provided Communion [] Anointing/[place] [] Salvation [x] Completed spiritual assessment [] Other: Impact on Illness or Injury [] Angry [] Fearful [] Anxious [] Often cries [] Exhaustion [] Unable to work [] Unable to attend denominational [] Unable to walk/stand [] Unable to read [] Unable to drive [] Unable to eat/drink [] Unable to sleep [] Unable to be with family [] Patient intubated [] Other: Summary Time spent with patient
[2022-01-03 17:20] LABS: Anion Gap 11.8 (5-19); Blood Urea Nitrogen 13 mg/dL (8-23); Calcium 9.3 mg/dL (8.5-10.5); Carbon Dioxide 25 mmol/L (22-29); Chloride 100 mmol/L (98-107); Glucose 132 mg/dL (65-115); Osmolality Calculated 278 mOsm/kg (285-295); Potassium 3.8 mmol/L (3.5-5.1); Sodium 133 mmol/L (136-145)
[2022-01-03 17:25] LABS: Glucose Point of Care 131 mg/dL (70-110)
[2022-01-03 20:51] LABS: Glucose Point of Care 152 mg/dL (70-110)
[2022-01-03] MEDS: insulin lispro 100 unit/1 mL SUBCUT (21:04)
[2022-01-04] VITALS (26 sets, daily range): BP systolic 78–135; BP diastolic 50–69; PULSE 72–107; RESP 13–31; TEMP 36.4–37.2; O2SAT 84–98
[2022-01-04] MEDS: oxyCODONE-APAP 5-325 mg Tablet PO ×3 (00:03→22:00)
[2022-01-04 03:31] LABS: Basophils % 0.1 %; Eosinophils # 0.1 10^3/uL (0.0-0.8); Eosinophils % 0.9 %; Hemoglobin 11.2 g/dL (11.7-16.6); Lymphocytes # 1.3 10^3/uL (0.8-4.8); Lymphocytes % 14.1 %; Mean Corpuscular HGB Conc 32.9 g/dL (30.0-36.0); Mean Corpuscular Hemoglobin 30.1 pg (28.0-34.0); Mean Corpuscular Volume 91.4 fl (80-94); Mean Platelet Volume 10.1 fL (7.4-10.4); Monocytes # 0.6 10^3/uL (0.2-0.9); Monocytes % 7.1 %; Neutrophils # 7.01 10^3/uL (1.8-7.7); Neutrophils % 77.5 %; Nucleated Red Blood Cells % 0 %; Platelet Count 145 10^3/cmm (130-400); Red Blood Count 3.72 10^6/uL (4.1-5.3); Red Cell Distribution Width 11.6 % (12.1-15.1); White Blood Count 9.1 10^3/uL (4.0-10.0)
[2022-01-04 04:03] LABS: Blood Urea Nitrogen 16 mg/dL (8-23); Calcium 9.5 mg/dL (8.5-10.5); Carbon Dioxide 27 mmol/L (22-29); Chloride 101 mmol/L (98-107); Glucose 164 mg/dL (65-115); Osmolality Calculated 291 mOsm/kg (285-295); Sodium 138 mmol/L (136-145)
--- NOTE | 2022-01-04 06:00 | XR_ITS ---
WS: [email or web address] Exam: XR chest 1V portable [id number] Date/Time of Exam: 01/04/2022 4:06 AM Reason For Exam: POD#3 s/p CABG: diuresing Comparison 01/03/2022. Improving atelectatic change in the left lower lobe. The lungs are otherwise clear. Plaque atelectasi s in the right base. Mild cardiac enlargement unchanged. Signs of previous CABG surgery. Left chest t ube unchanged in location. XR/XR chest 1V portable [id number] IMPRESSION: 1. Improving left lower lobe atelectasis and trace pleural effusion. 2. Mild cardiac enlargement unchanged.
[2022-01-04 07:33] LABS: Glucose Point of Care 116 mg/dL (70-110)
--- NOTE | 2022-01-04 08:29 | PM.PN ---
Subjective Subjective: Postop day #3 status post CABG. Doing well. Complains of constipation. Sternotomy discomfort under good control. Good use of incentive spirometry. Now pulling 1250 cc. Chest x-ray reveals resolution of the platelike atelectasis left lower lobe. Chest tube output approximately 300 cc past 24 hours. H&H is stable. White count has returned to normal. Vitals/I&O/Wt Last Vital Signs Temp 98.9 F 01/04/22 04:00 Pulse 82 01/04/22 07:00 Resp 18 01/04/22 07:00 BP 117/60 01/04/22 07:00 Pulse Ox 94 01/04/22 07:00 01/03/22 01/04/22 01/04/22 22:59 06:59 14:59 Intake Total 100 / 963.15 120 / 1083.15 Output Total 405 / 880 630 / 1510 Balance -305 / 83.15 -510 / -426.85 Weight last 48 hrs Weight 178 lb Physical Exam Chest: OTHER: Chest wall is stable. Wound VAC dressing in position. Pleural and mediastinal drains are in position. Resp: COMMON NORMALS: normal respiratory effort, No use of accessory muscles and clear to auscultation bilaterally AUSCULTATION: clear to auscultation bilaterally Cardio: COMMON NORMALS: regular rate, regular rhythm, S1 normal heart sound present and No rub (Cardio) RATE: regular rate RHYTHM: regular rhythm HEART SOUNDS: S1 normal heart sound present GI: OTHER: Hypoactive bowel sounds. Abdomen is soft. Extremity: OTHER: Peripheral edema has almost completely resolved. Urinary Catheter Management: Cuevas Latex Free: Cath Placed During This Visit: yes Reason for Continuing Indwelling Catheter: Accurate Measurement of Urinary Output in Critically Ill Patients Urinary Catheter Date of Insertion: 01/01/22 Urinary Catheter Time of Insertion: 07:30 Data : 01/04/22 03:02 01/04/22 03:02 A&P Assessment and plan (1) Status post aorto-coronary artery bypass graft: Postop day #3 status post CABG Plan: Will discontinue drains later today. Awaiting bed availability for transfer to intermediate care. Increase activity. Discharge planning for probable discharge this weekend. Will administer p.o. Lasix this morning. Status: Acute Attestations Medical Necessity Statement*: Postop day #3 status post CABG Coding Level of Care Code Acute Agricultural Engineering Technologist for Chg Fwd Diagnoses Status post aorto-coronary artery bypass graft Z95.1
[2022-01-04] MEDS: lactulose oral liq 20 gm/30 mL UDC 30 GM PO (08:46)
[2022-01-04] MEDS: FUROsemide 20 mg Tablet PO (08:46)
[2022-01-04] MEDS: metoprolol tartrate 25 mg Tablet PO ×2 (08:49→21:57)
[2022-01-04] MEDS: pantoprazole DR 40 mg Tablet PO (08:49)
[2022-01-04] MEDS: aspirin 325 mg Tablet PO (08:49)
[2022-01-04] MEDS: chlorhexidine gluconate 0.12% Btl 473 mL 15 ML MUCOUS MEM ×2 (10:07→18:21)
--- NOTE | 2022-01-04 10:44 | PC.SOCIAL ---
IMM Update Pg. 2 of IMM updated and reviewed with patient, who verbalized understanding. Copy provided.
--- NOTE | 2022-01-04 10:45 | PC.NURSE ---
assisted up in chair at this time chest tube water added and to suction lasix given this am voided per bsc.. some c/o constipation laxative ordered.. poor appitite add pancho giron
[2022-01-04 12:07] LABS: Glucose Point of Care 152 mg/dL (70-110)
[2022-01-04] MEDS: insulin lispro 100 unit/1 mL SUBCUT (12:27)
--- NOTE | 2022-01-04 15:07 | PC.NURSE ---
up in chair several times today no distress some pain in chest given pain medication prior
--- NOTE | 2022-01-04 17:00 | PC.NURSE ---
removed chest tube and pacer wires per doctor with dressing applied at this time
[2022-01-04 17:16] LABS: Glucose Point of Care 148 mg/dL (70-110)
--- NOTE | 2022-01-04 18:21 | NUR.SHIFT ---
Shift Note Frequent safety and comfort rounds continue. Orders and/or nursing care completed as indicated. Patient monitored for response to intervention and treatment(s). Education provided removal of chest tubes.. and pacer wires Will continue to monitor.
--- NOTE | 2022-01-04 19:32 | PM.PN ---
Subjective Subjective: Patient doing well. Sternotomy discomfort under control Vitals/I&O/Wt Last Vital Signs Temp 98 F 01/04/22 12:00 Pulse 88 01/04/22 18:00 Resp 28 H 01/04/22 18:00 BP 78/62 01/04/22 18:00 Pulse Ox 96 01/04/22 12:00 01/04/22 01/04/22 01/04/22 06:59 14:59 22:59 Intake Total 120 / 1083.15 4150 / 4150 450 / 4600 Output Total 630 / 1510 600 / 600 Balance -510 / -426.85 3550 / 3550 450 / 4000 Weight last 48 hrs Weight 178 lb Physical Exam Narrative: GENERAL: Patient is alert, awake and oriented x3. [] NECK: No jugular vein distension. [] HEENT: No cyanosis. No icterus. No pallor. [] HEART: Regular S1 and S2. No murmur, rub or gallop.? Has sternotomy incision dressing.? [] LUNGS: Clear to auscultate bilaterally. [] CENTRAL NERVOUS SYSTEM: Grossly nonfocal. [] EXTREMITIES: Lower extremities with 1+ edema bilaterally. Pulses palpable in the lower extremities, both dorsalis pedis and posterior tibial. [] Urinary Catheter Management: Cuevas Latex Free: Cath Placed During This Visit: yes Reason for Continuing Indwelling Catheter: Accurate Measurement of Urinary Output in Critically Ill Patients Urinary Catheter Date of Insertion: 01/01/22 Urinary Catheter Time of Insertion: 07:30 Data : 01/04/22 03:02 01/04/22 03:02 A&P Assessment and plan (1) Status post aorto-coronary artery bypass graft: Status: Acute (2) Two-vessel coronary artery disease: Status: Acute (3) Hypertension: Status: Acute (4) Statin intolerance: Status: Acute (5) ASHD (arteriosclerotic heart disease): Status: Acute Plan Patient is s/p CABG with SVG to RCA and HATHAWAY to OM. This is postop day 3. Doing well. Extubated and ambulating Recieved IV lasix. Continue aspirin and Metoprolol. Intolerant to statin therapy Blood pressure is overall stable. Continue telemetry monitoring. Monitor electrolytes with goal K>4 and Mg>2 Plan for transferring out of ICU Thank you for involving us with care of this patient. We will continue to follow. Please call with questions Attestations Medical Necessity Statement*: Care expected to cross 2 midnights. Coding Level of Care Code Acute Powertrain Control Systems Engineer for Kiley Roger Diagnoses Status post aorto-coronary artery bypass graft Z95.1 Two-vessel coronary artery disease I25.10 Hypertension I10 Statin intolerance Z78.9 ASHD (arteriosclerotic heart disease) I25.10
[2022-01-05] VITALS (20 sets, daily range): BP systolic 97–165; BP diastolic 47–83; PULSE 69–96; RESP 17–29; TEMP 36.7–37.2; O2SAT 90–93
--- NOTE | 2022-01-05 06:36 | PM.PN ---
Subjective Subjective: Postop day #4 status post CABG x2. Uneventful night. Positive flatus though no BM as of yet. No voiding difficulties. Drains and pacing wires were discontinued yesterday. No arrhythmias have been reported. Vital signs are stable. Sternotomy discomfort is under good control. Vitals/I&O/Wt Last Vital Signs Temp 98.0 F 01/05/22 03:00 Pulse 82 01/05/22 06:00 Resp 25 H 01/05/22 06:00 BP 117/65 01/05/22 06:00 Pulse Ox 92 01/05/22 04:00 01/04/22 01/04/22 01/05/22 14:59 22:59 06:59 Intake Total 4150 / 4150 650 / 4800 300 / 5100 Output Total 600 / 600 300 / 900 300 / 1200 Balance 3550 / 3550 350 / 3900 0 / 3900 Weight last 48 hrs Weight 178 lb Physical Exam Chest: OTHER: Wound VAC dressing was removed today. Sternotomy incision is clean, dry, and intact. Sternum is stable. Drain sites well approximated. Incisions were painted with Betadine and redressed. Resp: COMMON NORMALS: normal respiratory effort and clear to auscultation bilaterally AUSCULTATION: clear to auscultation bilaterally OTHER: Good use of incentive spirometry, pulling 1250 cc. Cardio: COMMON NORMALS: regular rate, regular rhythm, No murmurs present (Cardio) and No rub (Cardio) RATE: regular rate RHYTHM: regular rhythm Extremity: OTHER: Peripheral edema is almost completely resolved. Urinary Catheter Management: Cuevas Latex Free: Cath Placed During This Visit: yes Reason for Continuing Indwelling Catheter: Accurate Measurement of Urinary Output in Critically Ill Patients Urinary Catheter Date of Insertion: 01/01/22 Urinary Catheter Time of Insertion: 07:30 Data : 01/04/22 03:02 01/04/22 03:02 A&P Assessment and plan (1) Status post aorto-coronary artery bypass graft: POD #4 status post CABG Plan: Transfer to [facility] today when confirmation of available staff. Continue ambulation and postop recovery routine Confirm home health services are arranged. Betasept shower tomorrow and consider discharge. Status: Acute Attestations Medical Necessity Statement*: Postop day #4 status post CABG Coding Level of Care Code Acute Incident Response Engineer for Chg Fwd Diagnoses Status post aorto-coronary artery bypass graft Z95.1
[2022-01-05] MEDS: aspirin 325 mg Tablet PO (08:37)
[2022-01-05] MEDS: metoprolol tartrate 25 mg Tablet PO ×2 (08:37→21:48)
[2022-01-05] MEDS: pantoprazole DR 40 mg Tablet PO (08:37)
[2022-01-05] MEDS: chlorhexidine gluconate 0.12% Btl 473 mL 15 ML MUCOUS MEM (08:38)
--- NOTE | 2022-01-05 11:54 | PC.CHAP ---
Pastoral Care Encounter/Spiritual Assessment Type of Contact [] Declined licensed occupational therapy assistant visit [] Patient/Family/Request visit [] Outpatient visit [] Follow-up visit [] Physician referral [] Code/Alert [x] Routine visit [] Staff referral [] Actively dying [] Patient sleeping [x] Family support [] [] Out of room [] Palliative care [] [] Receiving care in room [] Pre-surgical visit [] Trauma [] Long length of stay [x] ICU visit [] Other: Relational/Emotional Strength [] Patient feels connected with others/family/visitors/staff [] Distress [] Loneliness/isolation [] Abandonment Spirituality of Patient [] Person of Trista [] Attends Rastafarian of their Trista [] Believes in Prayer [] Reads Bible or Baptist materials [] There are Spiritual issues to be addressed Title Searcher Interventions [x] Prayer [x] Active listening [x] Non-anxious presence [x] Spiritual/emotional support [] Crisis/trauma care [] Spiritual counseling [] Bereavement support [] Provided bereavement packet [] Provided Bible/devotional materials [] Provided toy/stuffed animal, coloring book to patient or family member [] Provided Communion [] Anointing/[place] [] Salvation [x] Completed spiritual assessment [] Other: Impact on Illness or Injury [] Angry [] Fearful [] Anxious [] Often cries [] Exhaustion [] Unable to work [] Unable to attend sikh [] Unable to walk/stand [] Unable to read [] Unable to drive [] Unable to eat/drink [] Unable to sleep [] Unable to be with family [] Patient intubated [] Other: Summary Time spent with patient
--- NOTE | 2022-01-05 15:17 | P.PN_ITS ---
Subjective Subjective: Patient is doing well. Denies chest pain. Vitals/I&O/Wt Last Vital Signs Temp 98.0 F 01/05/22 03:00 Pulse 85 01/05/22 14:00 Resp 24 H 01/05/22 14:00 BP 109/67 01/05/22 14:00 Pulse Ox 92 01/05/22 04:00 01/05/22 01/05/22 01/05/22 06:59 14:59 22:59 Intake Total 300 / 5100 960 / 960 Output Total 300 / 1200 350 / 350 Balance 0 / 3900 610 / 610 Weight last 48 hrs Weight 178 lb Physical Exam Narrative: GENERAL: Patient is alert, awake and oriented x3. [] NECK: No jugular vein distension. [] HEENT: No cyanosis. No icterus. No pallor. [] HEART: Regular S1 and S2. No murmur, rub or gallop.? Has sternotomy incision dressing.? [] LUNGS: Clear to auscultate bilaterally. [] CENTRAL NERVOUS SYSTEM: Grossly nonfocal. [] EXTREMITIES: Lower extremities with 1+ edema bilaterally. Pulses palpable in the lower extremities, both dorsalis pedis and posterior tibial. [] Urinary Catheter Management: Cuevas Latex Free: Cath Placed During This Visit: yes Reason for Continuing Indwelling Catheter: Accurate Measurement of Urinary Output in Critically Ill Patients Urinary Catheter Date of Insertion: 01/01/22 Urinary Catheter Time of Insertion: 07:30 Data : 01/04/22 03:02 01/04/22 03:02 A&P Assessment and plan (1) Status post aorto-coronary artery bypass graft: Status: Acute (2) Two-vessel coronary artery disease: (3) Hypertension: Status: Acute (4) Statin intolerance: Status: Acute (5) ASHD (arteriosclerotic heart disease): Status: Acute Plan Patient is s/p CABG with SVG to RCA and HATHAWAY to OM. Ambulating Lasix as needed Continue aspirin and Metoprolol. Intolerant to statin therapy Blood pressure is overall stable. Continue telemetry monitoring. Monitor electrolytes with goal K>4 and Mg>2 Thank you for involving us with care of this patient. Please call with questions Attestations Medical Necessity Statement*: Care expected to cross 2 midnights. Coding Level of Care Code Acute Compressor Station Chief Engineer for Kiley Fwdavin Diagnoses Status post aorto-coronary artery bypass graft Z95.1 Two-vessel coronary artery disease I25.10 Hypertension I10 Statin intolerance Z78.9 ASHD (arteriosclerotic heart disease) I25.10
--- NOTE | 2022-01-05 15:43 | PC.NURSE ---
Patient transferred to [facility] at 1515.
[2022-01-05] MEDS: oxyCODONE-APAP 5-325 mg Tablet PO (23:51)
[2022-01-06] VITALS (7 sets, daily range): BP systolic 109–131; BP diastolic 65–68; PULSE 69–87; RESP 16–20; TEMP 36.7–36.9; O2SAT 92–94
[2022-01-06] MEDS: metoprolol tartrate 25 mg Tablet PO (08:06)
[2022-01-06] MEDS: aspirin 325 mg Tablet PO (08:06)
[2022-01-06] MEDS: pantoprazole DR 40 mg Tablet PO (08:06)
--- NOTE | 2022-01-06 08:16 | P.DS_ITS ---
Discharge Providers Date of Admission: 01/01/22 05:19 Date of Discharge: January 06, 2022 Attending Provider at Admission: Michele Payton MD Attending Provider at Discharge: Michele Payton MD Primary Care Provider: Paolo Berumen MD Diagnoses at Discharge Discharge Diagnosis (1) Status post aorto-coronary artery bypass graft: Details from hospital stay: Mr. Patel is a very pleasant 76-year-old gentleman with severe two-vessel coronary artery disease including total occlusion of the RCA with left to right collateralization and a high-grade ostial heavily calcific circumflex lesion. These areas were not felt to be readily amenable to percutaneous approach therefore, he was referred for surgical revascularization. He was electively admitted on January 01 after careful outpatient preop evaluation. He underwent CABG x2. Postoperatively, he convalesced in the ICU where he did very well. He was extubated several hours postoperatively. He had no substantial arrhythmias during his postoperative course. He was seen consistently by our nursing service, respiratory therapy, and physical therapy. Chest tube output continued to decrease readily and his chest tubes were discontinued on the third postoperative day. Wound VAC dressing was removed yesterday. Incision is clean, dry, and intact. Chest wall is stable. He has good use of incentive spirometry, pulling 1250 cc. Tolerating a diet well with positive flatus. Vital signs have remained stable. Cardiopulmonary exam is unremarkable. Home health services have been arranged. He will be discharged home today in stable condition. Status: Acute (2) Two-vessel coronary artery disease: Status: Acute (3) Hypertension: Status: Acute (4) Statin intolerance: Status: Acute (5) ASHD (arteriosclerotic heart disease): Status: Acute Reason for Visit Reason for Visit: cabg Physical Exam Const: COMMON NORMALS: patient oriented x3 Chest: COMMONS NORMALS: normal inspection of the chest and normal palpation of entire chest wall OTHER: Sternotomy incision is clean, dry, and intact. Drain sites well approximated. Chest wall is stable. Resp: COMMON NORMALS: normal respiratory effort, No use of accessory muscles and clear to auscultation bilaterally AUSCULTATION: clear to auscultation bilaterally Cardio: COMMON NORMALS: regular rate, regular rhythm, S1 normal heart sound present, No murmurs present (Cardio) and No rub (Cardio) RATE: regular rate RHYTHM: regular rhythm HEART SOUNDS: S1 normal heart sound present GI: COMMON NORMALS: Normal to inspection, nondistended, normoactive bowel sounds present Extremity: COMMON NORMALS: no clubbing, cyanosis or edema Neuro: COMMON NORMALS: patient oriented x3, no focal motor deficits, no sensory deficits noted and gait normal Urinary Catheter Management: Cuevas Latex Free: Cath Placed During This Visit: yes Reason for Continuing Indwelling Catheter: Accurate Measurement of Urinary Output in Critically Ill Patients Urinary Catheter Date of Insertion: 01/01/22 Urinary Catheter Time of Insertion: 07:30 Discharge Data Studies Completed and Pending Completed Studies During Hospitalization Category Date Time Status XR chest 1V portable [id number] Routine Exams 01/01/22 15:10 Completed XR chest 1V portable [id number] Routine Exams 01/02/22 06:00 Completed XR chest 1V portable [id number] Routine Exams 01/03/22 06:00 Completed XR chest 1V portable [id number] Routine Exams 01/04/22 06:00 Completed Pending at discharge Category Date Time Status ABG FULL [Arterial Blood Gas Full] Routine Lab 01/01/22 05:45 Results Urinalysis Routine Lab 01/01/22 04:49 Uncollected Radiology Impressions Chest X-Ray 01/04/22 06:00 IMPRESSION: 1. Improving left lower lobe atelectasis and trace pleural effusion. 2. Mild cardiac enlargement unchanged. Laboratory Results WBC 9.1 10^3/uL (4.0-10.0) 01/04/22 03:02 RBC 3.72 10^6/uL (4.1-5.3) L 01/04/22 03:02 Hgb 11.2 g/dL (11.7-16.6) L 01/04/22 03:02 Hct 34.0 % (42.0-52.0) L 01/04/22 03:02 MCV 91.4 fl (80-94) 01/04/22 03:02 MCH 30.1 pg (28.0-34.0) 01/04/22 03:02 MCHC 32.9 g/dL (30.0-36.0) 01/04/22 03:02 RDW 11.6 % (12.1-15.1) L 01/04/22 03:02 Plt Count 145 10^3/cmm (130-400) 01/04/22 03:02 MPV 10.1 fL (7.4-10.4) 01/04/22 03:02 Neut % (Auto) 77.5 % 01/04/22 03:02 Lymph % (Auto) 14.1 % 01/04/22 03:02 Baker % (Auto) 7.1 % 01/04/22 03:02 Eos % (Auto) 0.9 % 01/04/22 03:02 Baso % (Auto) 0.1 % 01/04/22 03:02 Neut # (Auto) 7.01 10^3/uL (1.8-7.7) 01/04/22 03:02 Lymph # (Auto) 1.3 10^3/uL (0.8-4.8) 01/04/22 03:02 Baker # (Auto) 0.6 10^3/uL (0.2-0.9) 01/04/22 03:02 Eos # (Auto) 0.1 10^3/uL (0.0-0.8) 01/04/22 03:02 Baso # (Auto) 0.0 10^3/uL (0.0-0.1) 01/04/22 03:02 Nucleated RBC % (auto) 0 % 01/04/22 03:02 Nucleated RBCs # 0.0 /100WBC 01/04/22 03:02 PT 16.30 SECONDS (12.1-14.9) H 01/02/22 03:44 INR 1.28 (0.8-1.2) H 01/02/22 03:44 APTT 37.2 SECONDS (23.9-36.7) H 01/02/22 03:44 Specimen Type Arterial 01/02/22 03:40 Sample Site Radial, right 01/02/22 03:40 ABG pH 7.44 (7.35-7.45) 01/02/22 03:40 ABG pCO2 39.5 mmHg (35-45) 01/02/22 03:40 ABG pO2 71.1 mmHg (80.0-100.0) L 01/02/22 03:40 ABG HCO3 26.6 mmol/L (22-26) H 01/02/22 03:40 ABG O2 Saturation 92.8 01/02/22 03:40 ABG Base Excess 2.2 mmol/L (-2.0-2.0) H 01/02/22 03:40 Vicente Test Pos 01/02/22 03:40 A-a O2 Gradient 3.8 mmHg (5-10) L 01/02/22 03:40 Hematocrit 35.6 % (42-52) L 01/02/22 03:40 Hgb O2 Saturation 91.8 % (95-100) L 01/02/22 03:40 Carboxyhemoglobin 0.0 %THgb (0.4-20.1) L 01/02/22 03:40 Methemoglobin 1.1 % (0.4-1.5) 01/02/22 03:40 Total Hemoglobin 11.6 g/dL (14-18) L 01/02/22 03:40 Sodium 146.0 mmol/L (131-143) H 01/02/22 03:40 Potassium 3.9 mmol/L (3.5-5.0) 01/02/22 03:40 Glucose 117.0 mg/dL (70-115) H 01/02/22 03:40 Ionized Calcium 1.1 mmol/L (1.1-1.4) 01/02/22 03:40 O2 Delivery Device Nc 01/02/22 03:40 O2 Liters/Min 3.0 % 01/02/22 03:40 FiO2 100.0 % 01/01/22 15:25 Tidal Volume 0.55 01/01/22 15:25 PEEP 5.0 cmH20 01/01/22 15:25 Rotary Adjuster ID ellpe 01/02/22 03:40 Sodium 138 mmol/L (136-145) 01/04/22 03:02 Potassium 4.0 mmol/L (3.5-5.1) 01/04/22 03:02 Chloride 101 mmol/L (98-107) 01/04/22 03:02 Carbon Dioxide 27 mmol/L (22-29) 01/04/22 03:02 Anion Gap 14.0 (5-19) 01/04/22 03:02 BUN 16 mg/dL (8-23) 01/04/22 03:02 Creatinine 0.9 mg/dL (0.7-1.2) 01/04/22 03:02 GFR Calculation Not Reportable 01/04/22 03:02 Glucose 164 mg/dL (65-115) H 01/04/22 03:02 POC Glucose 148 mg/dL (70-110) H 01/04/22 17:13 Fasting Glucose Cancelled 01/02/22 03:44 Calculated Osmolality 291 mOsm/kg (285-295) 01/04/22 03:02 Calcium 9.5 mg/dL (8.5-10.5) 01/04/22 03:02 Magnesium 2.0 mg/dL (1.7-2.3) 01/04/22 03:02 Total Bilirubin 0.3 mg/dL (0.15-1.2) 12/20/21 08:10 Direct Bilirubin 0.20 mg/dL (0.00-0.30) 12/20/21 08:10 AST 18 U/L (0-40) 12/20/21 08:10 ALT 10 U/L (0-41) 12/20/21 08:10 Alkaline Phosphatase 84 IU/L (40-130) 12/20/21 08:10 Total Protein 8.5 g/dL (6.6-8.7) 12/20/21 08:10 Albumin 4.7 g/dL (3.5-5.2) 12/20/21 08:10 Globulin 3.8 g/dL (1.3-4.6) 12/20/21 08:10 TSH 1.33 uIU/mL (0.27-4.20) 12/20/21 08:10 Free T4 1.08 ng/dL (0.82-1.77) 12/20/21 08:10 Urine Color Yellow (Yellow) 12/20/21 08:40 Urine Appearance Clear (CLEAR) 12/20/21 08:40 Urine pH 6 (5-7) 12/20/21 08:40 Ur Specific [place] 1.020 (1.005-1.030) 12/20/21 08:40 Urine Protein Neg (Negative) 12/20/21 08:40 Urine Glucose (UA) Norm (Normal) 12/20/21 08:40 Urine Ketones Negative (Negative) 12/20/21 08:40 Urine Blood Neg (Negative) 12/20/21 08:40 Urine Nitrate Negative (Negative) 12/20/21 08:40 Urine Bilirubin Neg (Negative) 12/20/21 08:40 Urine Urobilinogen Norm mg/dL (Negative) 12/20/21 08:40 Ur Leukocyte Esterase Negative (Negative) 12/20/21 08:40 Urine RBC Cancelled 12/20/21 08:40 Urine WBC Cancelled 12/20/21 08:40 Ur Squamous Epith Cells Cancelled 12/20/21 08:40 Ur Transition Epith Cell Cancelled 12/20/21 08:40 Ur Renal Epithelial Cell Cancelled 12/20/21 08:40 Calcium Oxalate Crystal Cancelled 12/20/21 08:40 Uric Acid Crystals Cancelled 12/20/21 08:40 Triple Phos Crystals Cancelled 12/20/21 08:40 Other Crystals Cancelled 12/20/21 08:40 Amorphous Sediment Cancelled 12/20/21 08:40 Urine Bacteria Cancelled 12/20/21 08:40 Hyaline Casts Cancelled 12/20/21 08:40 Fine Granular Casts Cancelled 12/20/21 08:40 Coarse Granular Casts Cancelled 12/20/21 08:40 RBC Casts Cancelled 12/20/21 08:40 Other Casts Cancelled 12/20/21 08:40 Urine Mucus Cancelled 12/20/21 08:40 Urine Trichomonas Cancelled 12/20/21 08:40 Urine Yeast Cancelled 12/20/21 08:40 Urine Sperm Cancelled 12/20/21 08:40 Ur Oval Fat Bodies Cancelled 12/20/21 08:40 Coronavirus 229E (PCR) Detected (NOT DETECT) A 12/27/21 11:27 SARS-CoV-2 (PCR) Not detected (NOT DETECT) 12/27/21 11:27 Blood Type A Positive 12/29/21 10:14 Rho(D) Type Positive 12/29/21 10:14 Antibody Screen Negative 12/29/21 10:14 Crossmatch See Detail 12/29/21 10:14 Vitals Last Vital Signs Temp 98.0 F 01/06/22 04:00 Pulse 87 01/06/22 08:00 Resp 20 H 01/06/22 04:00 BP 130/68 01/06/22 08:00 Pulse Ox 94 01/06/22 04:00 Discharge Plan Discharge Patient Disposition: Home Condition: Stable Prescriptions: New hydrocodone-acetaminophen 5-325 mg tablet 1 tab PO Q6H PRN (Reason: pain) Qty: 30 0RF metoprolol tartrate 25 mg Tablet 25 mg PO BID@0900,2100 Qty: 60 5RF Continued acetaminophen [Tylenol Arthritis Pain] 650 mg tablet extended release 650 mg PO Q12H 0RF arginine (L-arginine) 500 mg capsule 500 mg PO DAILY 0RF PreserVision AREDS [id number] [id number] capsule 1 cap PO DAILY 0RF nitroglycerin [Nitrostat] 0.4 mg tablet, sublingual 0.4 mg SUBLINGUAL Q5M PRN (Reason: chest pain) 0RF Rx Instructions: do not exceed 3 doses per episode aspirin [Aspir-81] 81 mg tablet,delayed release (DR/EC) 81 mg PO DAILY 0RF Repatha Pushtronex 420 mg/3.5 mL wearable injector 420 mg SUBCUT DIRECTED 0RF CO Q 10 100 mg PO BID 0RF gemfibrozil 600 mg tablet 600 mg PO BID Qty: 180 3RF isosorbide mononitrate 30 mg tablet extended release 24 hr 30 mg PO DAILY Qty: 90 3RF Discontinued metoprolol tartrate 25 mg tablet 12.5 mg PO BID 0RF Discharge Orders: Discharge Order (Routine); Ordered 01/06/22 Ordered By: Michele Payton Referrals: [facility] [Outside] Michele Payton MD [Physician] - 1 week Discharge Diet: Cardiac Discharge Activity: Limit activity as instructed Patient Instructions: Opioid Safety Activity Restrictions/Additional Instructions: May shower with dressings off No swimming or tub baths x2 weeks No lifting, pulling, or pushing with upper extremities more than 5 pounds for t he next 6 weeks Dry incisions thoroughly after shower Report any fever, incisional redness, swelling, drainage, or increasing pain. Report any increasing shortness of breath or weight gain over 10 pounds Use incentive spirometer frequently Keep heart pillow readily available to assist with coughing, deep breathing, or sneezing Discharge Attestations Time Spent in Discharge Care*: less than 30 min Specific Discharge Activities: educating patient, educating and/or supporting family/caregiver, documenting/other paperwork and evaluating patient/reviewing data Status at Discharge: Cognitive status at discharge: cognitively intact , Behavioral status at discharge: cooperative , Functional status at discharge: independent ambulation , Overall status at discharge: patient is progressing back to baseline Quality Metrics Clinical Quality Measures [ No reported AMI, CVA or VTE this stay] Coding Level of Care Code Acute Chg FW DC note Diagnoses Status post aorto-coronary artery bypass graft Z95.1 Two-vessel coronary artery disease I25.10 Hypertension I10 Statin intolerance Z78.9 ASHD (arteriosclerotic heart disease) I25.10
[2022-01-06] MEDS: chlorhexidine gluconate 4% Btl 118 mL 1 APPLIC TOPICAL (09:24)
--- NOTE | 2022-01-06 09:29 | PC.SOCIAL ---
IMM Updated Updated pt on IMM. No questions voiced. Provided pt a copy. Initialed, dated, & timed copy in chart.
== END 2022-01-06 11:45 | disposition home health service (06) | DRG 236 ==
LOC: ICU 14:40 → MEDSURG 01-05 15:15
PROVIDERS: Admitting Provider Thoracic Surgery (Cardiothoracic Vascular Surgery); PCP Family Medicine; Visit Provider Thoracic Surgery (Cardiothoracic Vascular Surgery)
PROC: 02100Z9 Bypass Coronary Artery, One Artery from Left Internal Mammary, Open Approach (ICD-10-PCS; principal; 2022-01-01 06:30)
DX: I25.10 Atherosclerotic heart disease of native coronary artery without angina pectoris (principal); Z95.5 Presence of coronary angioplasty implant and graft; E78.5 Hyperlipidemia, unspecified; Z87.891 Personal history of nicotine dependence; I10 Essential (primary) hypertension; K59.00 Constipation, unspecified; Z79.82 Long term (current) use of aspirin
CPT/HCPCS: 36415; 36416; 36592; 36600; 51702; 71045; 80048; 80051; 82330; 82803; 82805; 82962; 83735; 85025; 85610; 85730; 86850; 86900; 86920; 87635; 93005; 94002; 94640; 94799; 96372; 97110; 97116; 97161; 97166; 97530; 97535; A4570; J0171; J0697; J1250; J1644; J1815; J1940; J2001; J2150; J2250; J2270; J2370; J2440; J2704; J2720; J3010; J3370; J3475; J3480; J3490; J7030; J7040; J7050; P9041; P9047

== ENCOUNTER → 2022-01-11 11:04 | Outpatient (BNVA) | payer MEDICARE, SELFPAY | PROVIDERS: PCP Family Medicine; Visit Provider Thoracic Surgery (Cardiothoracic Vascular Surgery) | DX: Z98.890 Other specified postprocedural states (principal) ==

== ENCOUNTER → 2022-01-18 14:16 | Outpatient (BNVA) | payer MEDICARE, SELFPAY | PROVIDERS: PCP Family Medicine; Visit Provider Thoracic Surgery (Cardiothoracic Vascular Surgery) | DX: Z95.1 Presence of aortocoronary bypass graft (principal); L53.9 Erythematous condition, unspecified; F32.89 Other specified depressive episodes; Z79.82 Long term (current) use of aspirin | CPT/HCPCS: 99212; 99213 ==

== ENCOUNTER → 2022-01-25 12:52 | Outpatient (BNVA) | payer MEDICARE, SELFPAY | PROVIDERS: PCP Family Medicine; Visit Provider Thoracic Surgery (Cardiothoracic Vascular Surgery) | DX: Z98.890 Other specified postprocedural states (principal) | CPT/HCPCS: 99024 ==

== ENCOUNTER → 2022-02-15 08:44 | Outpatient (BNVA) | payer MEDICARE, SELFPAY | PROVIDERS: PCP Family Medicine; Visit Provider Thoracic Surgery (Cardiothoracic Vascular Surgery) | DX: Z98.890 Other specified postprocedural states (principal) | CPT/HCPCS: 99024 ==

== ENCOUNTER → 2022-08-29 10:25 | Outpatient (BNVA) | payer MEDICARE, SELFPAY | PROVIDERS: PCP Family Medicine; Visit Provider Internal Medicine | DX: I10 Essential (primary) hypertension (principal); Z95.1 Presence of aortocoronary bypass graft; I25.10 Atherosclerotic heart disease of native coronary artery without angina pectoris; Z87.891 Personal history of nicotine dependence | CPT/HCPCS: 99214 ==

== ENCOUNTER → 2023-10-24 14:28 | Outpatient (BNVA) | payer MEDICARE, SELFPAY | PROVIDERS: PCP Family Medicine; Visit Provider Internal Medicine | DX: I10 Essential (primary) hypertension (principal); Z95.1 Presence of aortocoronary bypass graft; I25.10 Atherosclerotic heart disease of native coronary artery without angina pectoris; Z87.891 Personal history of nicotine dependence | CPT/HCPCS: 99213 ==

== ENCOUNTER → 2025-04-20 15:00 | Outpatient (BNVA) | payer MEDICARE, SELFPAY | PROVIDERS: PCP Family Medicine; Visit Provider Internal Medicine | DX: I10 Essential (primary) hypertension (principal); I25.10 Atherosclerotic heart disease of native coronary artery without angina pectoris; Z95.1 Presence of aortocoronary bypass graft | CPT/HCPCS: 99213 ==